=== PATIENT | female | born 1950 | race Caucasian/White ===

== ENCOUNTER → 2020-03-15 11:38 | Outpatient (CLI) | payer MEDICARE, OTHER, SELFPAY ==
[2020-03-15 13:26] LABS: BUN Creatinine Ratio 40.3 (6-22); Blood Urea Nitrogen 25 mg/dL (7-17); Calcium 9.3 mg/dL (8.4-10.2); Carbon Dioxide 28 mmol/L (22-32); Chloride 103 mmol/L (98-107); Estimated Glomerular Filt Rate > 60.0 mL/min (>60); Glucose 141 mg/dL (80-110); HEMOLYSIS < 15 (0-50); Sodium 139 mmol/L (137-145)
[2020-03-15 16:03] LABS: Thyroid Stimulating Hormone 0.12 uIU/mL (0.47-4.68)
== END ==
PROVIDERS: PCP Family Medicine; Referring Provider Family Medicine; Visit Provider Family Medicine
DX: Z79.899 Other long term (current) drug therapy (principal); E03.9 Hypothyroidism, unspecified
CPT/HCPCS: 36415; 80048; 84443

== ENCOUNTER → 2020-11-22 11:51 | Outpatient (CLI) | payer MEDICARE, OTHER, SELFPAY ==
[2020-11-22] MEDS: COVID-19 VACC #1, MRNA(MOD) 100 MCG/0.5 ML VIAL IM (12:09)
== END ==
PROVIDERS: PCP Family Medicine; Visit Provider Internal Medicine
DX: Z23 Encounter for immunization (principal)
CPT/HCPCS: 0011A; 91301

== ENCOUNTER → 2020-12-20 12:11 | Outpatient (CLI) | payer MEDICARE, OTHER, SELFPAY ==
[2020-12-20] MEDS: COVID-19 VACC #2, MRNA(MOD) 100 MCG/0.5 ML VIAL IM (12:17)
== END ==
PROVIDERS: PCP Family Medicine; Visit Provider Internal Medicine
DX: Z23 Encounter for immunization (principal)
CPT/HCPCS: 0012A; 91301

== ENCOUNTER → 2022-01-09 13:20 | Outpatient (CLI) | payer MEDICARE, OTHER, SELFPAY ==
[2022-01-09 17:19] LABS: COVID19 -Nasal RAPID Negative (Negative)
== END ==
PROVIDERS: PCP Family Medicine; Visit Provider Nurse Practitioner Family
DX: Z20.822 Contact with and (suspected) exposure to COVID-19 (principal)
CPT/HCPCS: 87635; C9803

== ENCOUNTER 2022-01-11 11:56 | Day surgery (SDC) | payer MEDICARE, OTHER, SELFPAY ==
--- NOTE | 2022-01-11 12:10 | PM.HP.1 ---
History of Present Illness History of Present Illness Date Patient Seen: 01/11/22 Chief complaint: SDC Narrative: 71 year old female comes in today for consideration of a screening colonoscopy. Last colonoscopy at [facility], unfortunately, records unavailable at time of dictation. Reports that she has had 2 lifetime colonoscopies with history of colon polyps, unsure of type. There have been no lower GI symptoms suggesting disease such as change in bowel habits, bleeding, abdominal pain or anemia. There's been no family history of colon cancer or colon polyps. Overall health issues have been stable, including no major cardiac events for at least 6 weeks. PCP: Dr. Chris Past Medical History: Hypothyroidism Osteoarthritis - bilateral knees Breast cancer - left DCIS (oncologist, Dr. Toshia Chavez, [facility]) Obesity Osteoporosis History of colon polyps Melanoma, right arm, 06/30/2018, no metastases. Past Surgical History: Right breast lumpectomy ( benign) 1989 Hernia repair 2005 1985 Bone spur Lumpectomy 2011 -left Multiple breast biopsies, left side Colonoscopy Family History: Father - age 96 ? 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 Alcohol drinks/day: 2/day >5/day in last 3 mos: no Caffeine use/day: 2 Type of Exercise: bike Exercise Times per Week: 6 Guns in home: no Dental Care w/in 6 mos.: yes Sun Exposure: occasionally Seat Belt Use: yes Smoking Status: former smoker Drug Use: never HIV High Risk Behavior: no Patient History Medical History (Updated 01/11/22 @ 12:21 by Laina Nazario RN) Breast cancer delivery affecting Colon polyps Hernia Hypothyroidism Obesity Osteoarthritis Osteoporosis Skin cancer Surgical History (Updated 01/10/22 @ 16:16 by Sharyn Goel RN) History of lumpectomy Meds Home Medications and Allergies Home Medications Medication Instructions Recorded Confirmed Type acetaminophen 500 mg PO Q6H PRN 01/11/22 01/11/22 History diphenhydramine HCl 25 mg capsule 25 mg PRN PRN 01/11/22 01/11/22 History (Allergy (diphenhydramine)) levothyroxine 112 mcg tablet 112 mcg DAILY 01/11/22 01/11/22 History meloxicam 7.5 mg tablet 7.5 mg DAILY 01/11/22 01/11/22 History raloxifene 60 mg tablet 60 mg DAILY 01/11/22 01/11/22 History Allergies Allergy/AdvReac Type Severity Reaction Status Date / Time cefuroxime Allergy Verified 01/11/22 12:13 Review of Systems Review of Systems Narrative: All remaining ROS were reviewed and negative except as addressed. Exam Narrative Exam Narrative: GENERAL: Alert and oriented, appearing stated age and in no acute distress. HEENT: Head normocephalic/atraumatic. Extraocular movements intact. LUNGS: Clear to ausculation bilaterally, no wheezes, rhonchi or rales. CV: Normal S1 and S2 with regular rate and rhythm, no audible murmurs, rubs or gallops. ABDOMEN: Soft, non-tender, non-distended, no organomegaly. Positive bowel sounds. EXTREMITIES: No clubbing, cyanosis, or edema. NEURO: Cranial nerves II through XII grossly intact, no focal deficits. PSYCH: Alert and oriented x 3. SKIN: No concerning lesions. Assessment & Plan Assessment & Plan narrative: 1. History of colon polyps 2. Screening for colon cancer Plan for colonoscopy. The nature and character of the procedure as well as anticipated results were discussed. The possibility of not completing the procedure was also discussed. Possible complications including aspiration pneumonia, bleeding, perforation and reaction to medications either for sedation or preparation and missed lesions were discussed. Questions were answered and proceeding to the colonoscopy was elected. Informed consent signed. I sincerely appreciate the referral allowing me to participate in this patient's care. Please contact me with any questions or concerns.
--- NOTE | 2022-01-11 12:15 | PM.OP.COLON ---
Operative Date/Time/Diagnoses Date of procedure: 01/11/22 Procedure Notes Procedure in detail: ENDOSCOPIST: Jasmin Chris MD Sedation RN: Cleopatra Luo RN Sedation start time: 1:12 p.m. Sedation end time: 1:32 p.m. PROCEDURE: Colonoscopy INDICATIONS: 1. History of colon polyps 2. Screening for colon cancer MEDICATION: Levsin 0.125 mg sublingual, incremental doses of Versed and fentanyl until appropriate level sedation achieved. ASA CLASS: 2 CECAL WITHDRAWAL TIME: 6 minutes COMPLICATIONS: None. EXTENT OF PROCEDURE: Cecum. QUALITY OF PREP: Good with portions of liquid stool. PROCEDURE: Prior to insertion of the colonoscope, a digital rectal examination was accomplished with circumferential palpation of the distal rectal mucosa without significant findings being noted. The high-definition colonoscope was passed into the rectum in the usual fashion and advanced over to the cecum without difficulty. The ileocecal valve, appendiceal stoma, and medial wall all could be inspected and no abnormalities were seen. ASCENDING COLON: As the colonoscope was withdrawn, care was taken to expose and inspect the haustral folds and no abnormalities were seen. HEPATIC FLEXURE: Normal, no polyps, diverticula or other abnormalities. TRANSVERSE COLON: Normal, no polyps, diverticula or other abnormalities. DESCENDING COLON: Normal, no polyps, diverticula or other abnormalities. SIGMOID COLON: Minor diverticulosis, otherwise, normal, no polyps or other abnormalities. RECTUM: Normal. J maneuver was produced. There was no significant perianal disease. The J maneuver was broken. The remainder of the rectum was inspected and there was no external hemorrhoid disease. The scope was withdrawn. IMPRESSION: 1. Normal colonoscopy 2. Sigmoid diverticulosis, mild PLAN: 1. Repeat colonoscopy in 5 years secondary to history of colon polyps. The possibility of a missed lesion including a malignancy has been discussed with the patient previously. Potential alarm symptoms have been discussed and should be reported immediately.
[2022-01-11 12:23] VITALS: BP 122/77; PULSE 73; RESP 18; TEMP 36.2; O2SAT 97; BMI 36.2
[2022-01-11] MEDS: LACTATED RINGERS 1,000 ML 42 ML IV (12:46)
[2022-01-11] MEDS: HYOSCYAMINE 0.125 MG TABLET PO (12:49)
[2022-01-11] MEDS: fentaNYL 250 MCG/5 ML INJ IV (13:22)
[2022-01-11] MEDS: MIDAZOLAM 5 MG/5 ML VIAL IV (13:22)
[2022-01-11 13:37] VITALS: BP 140/81; PULSE 73; RESP 16; TEMP 37.3; O2SAT 96
[2022-01-11 13:42] VITALS: BP 131/57; PULSE 75; RESP 15; O2SAT 93
[2022-01-11 13:50] VITALS: BP 133/82; PULSE 74; RESP 16; O2SAT 98
[2022-01-11 13:55] VITALS: BP 125/55; PULSE 68; RESP 12; O2SAT 96
--- NOTE | 2022-01-11 13:55 | SUR.PHASEI ---
Discharge instructions reviewed with pt and she verbalized understanding.
== END 2022-01-11 14:01 | disposition home or self-care (01) ==
PROVIDERS: PCP Student in an Organized Health Care Education/Training Program; Referring Provider Student in an Organized Health Care Education/Training Program; Visit Provider Student in an Organized Health Care Education/Training Program
PROC: 0DJD8ZZ Inspection of Lower Intestinal Tract, Via Natural or Artificial Opening Endoscopic (ICD-10-PCS; CPT 45378; principal; 2022-01-11 13:00)
DX: Z12.11 Encounter for screening for malignant neoplasm of colon (principal); Z86.010 Personal history of colon polyps; K57.30 Diverticulosis of large intestine without perforation or abscess without bleeding
CPT/HCPCS: G0105; J2250; J3010

== ENCOUNTER 2023-02-11 08:15 | Outpatient (RCR) | payer MEDICARE, OTHER, SELFPAY ==
--- NOTE | 2022-12-09 16:02 | PT.OIE ---
Current Diagnoses Intraductal carcinoma in situ of left breast (12/09/22) Soft tissue disorder, unspecified (12/09/22) Abnormal posture (12/09/22) Past Medical History (Last Updated 01/11/22 @ 12:21 by Laina Nazario, RN) Breast cancer delivery affecting Colon polyps Hernia Hypothyroidism Obesity Osteoarthritis Osteoporosis Skin cancer Past Surgical History (Last Updated 01/10/22 @ 16:16 by Sharyn Goel, TRACE) History of lumpectomy Visit Care Team Role Provider Type Jasmin Chris MD Family Provider Physician Primary Care Provider Specialty: Family Practice Address: [address] [place] [address] [place], [place], [facility] Email: [email or web address] Attending Provider Referring Provider Specialty: Address: Phone: Fax: Email: Physical Therapy Initial Evaluation PT-OP-A Visit Information Start: 12/09/22 14:31 Freq: Status: Active Protocol: Document 12/09/22 14:31 SAK (Rec: 12/09/22 15:59 SAK [id number]) Out-Patient Physical Therapy Visit Information Visit Information Visit Type Initial Evaluation Visit Start Time 14:32 Visit Stop Time 15:16 Total Visit Minutes 44 Visit Number 1 Evaluation Information Evaluation Date 12/09/22 PT-OP-B Current Condition Start: 12/09/22 14:31 Freq: Status: Active Protocol: Document 12/09/22 14:31 SAK (Rec: 12/09/22 15:59 SAK [id number]) Current Condition History of Current Condition Onset Date 3 weeks ago Current Complaints improve left shoulder ROM History of Current Condition 5 yrs ago 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 In rebuilding phase of surgeries, has had 2 saline injections, has 1-2 further injection saline left, then full reconstruction in March. Precautions for ROM limitations removed. Would like to regain full motion and use of her left UE. Prior Treatments and Tests mastectomy 3 wks ago Future Testing and Treatments Planned as above Treatment Goals Patient/Caregiver Goals Regain full active use left UE Prior Functional Status Baseline Function- ADL's Independent Baseline Function- Work/School retired Baseline Function- Recreation/Hobbies no limitations Current Functional Impairments (Reported) Functional Limitations- ADL's minimal use left UE, difficulty reaching overhead, out to side PT-OP-C Subjective Start: 12/09/22 14:31 Freq: Status: Active Protocol: Document 12/09/22 14:31 SAK (Rec: 12/09/22 15:59 [facility] [id number]) OP-PT Pain Assessment Pain Assessment Grid Paper Pain Assessment Grid Completed Yes Location left breast Intensity 1 Scale Used Numeric (0 - 10) Description Aching Pain Behaviors Pain Behaviors Guarding PT-OP-F Manual Assessment Start: 12/09/22 14:31 Freq: Status: Active Protocol: Document 12/09/22 14:31 SAK (Rec: 12/09/22 15:59 [facility] [id number]) Manual Assessments Soft Tissue Assessment Soft Tissue Mobility Assessment mastectomy scar left healing well with no signs or symptoms of infection. PT-OP-H Neuro Start: 12/09/22 14:31 Freq: Status: Active Protocol: Document 12/09/22 14:31 SAK (Rec: 12/09/22 15:59 [facility] [id number]) Sensation Evaluation Comments Summary Comments denied N/T PT-OP-J Posture/Palpation/Skin Start: 12/09/22 14:31 Freq: Status: Active Protocol: Document 12/09/22 14:31 SAK (Rec: 12/09/22 15:59 [facility] [id number]) Posture Evaluation Position Sitting Head/C-Spine Posture Forward Head T-Spine Posture Increased Kyphosis Shoulder Posture (L) Rounded,(R) Rounded Scapula Posture (L) Protracted,(R) Protracted Arm Posture (L) Internally Rotated,(R) Internally Rotated Palpation Assessment Location left UE Palpation Details no warmth or redness Skin Assessment Incisional Assessment Incision Appearance/Comments healing well, no signs or symptoms of infection PT-OP-K Range of Motion Start: 12/09/22 14:31 Freq: Status: Active Protocol: Document 12/09/22 14:31 SAK (Rec: 12/09/22 15:59 [facility] [id number]) Shoulder Goniometric Range of Motion Shoulder Left Shoulder ROM WFL No Flexion 145 Extension 15 Abduction 140 Horizontal Abduction 0 External Rotation at 45 degrees 75 Abduction Right Shoulder ROM WFL Yes Shoulder ROM Limitations Shoulder ROM Limitations Soft Tissue Tightness PT-OP-N Lymphedema Start: 12/09/22 14:31 Freq: Status: Active Protocol: Document 12/09/22 14:31 [facility] (Rec: 12/09/22 15:59 [facility] [id number]) Lymphedema Measurements Upper Extremity Circumference Measurements Left Affected MCP 19.6 cm Dorsum of Hand 20.7 cm Wrist 17.5 cm 5 cm From Wrist Crease 20.9 cm 10 cm From Wrist Crease 23.9 cm 15 cm From Wrist Crease 27.2 cm 20 cm From Wrist Crease 29.2 cm 25 cm From Wrist Crease 30.6 cm 30 cm From Wrist Crease 33.9 cm 35 cm From Wrist Crease 36.3 cm 40 cm From Wrist Crease 39.5 cm Elbow Joint 28.9 cm Right MCP 19.4 cm Dorsum of Hand 19.5 cm Wrist 17.5 cm 5 cm From Wrist Crease 21.1 cm 10 cm From Wrist Crease 24.4 cm 15 cm From Wrist Crease 28.4 cm 20 cm From Wrist Crease 29 cm 25 cm From Wrist Crease 30.2 cm 30 cm From Wrist Crease 33.6 cm 35 cm From Wrist Crease 37.8 cm 40 cm From Wrist Crease 38.3 cm Elbow Joint 28.6 cm Comments Lymphedema Comments left forearm appears slightly puffy, may be due to wearing watch on that wrist causing indentation. PT-OP-Q Treatments Start: 12/09/22 14:31 Freq: Status: Active Protocol: Document 12/09/22 14:31 [facility] (Rec: 12/09/22 15:59 [facility] [id number]) Self-Care/Home Management Treatment Education Patient Education Home Exercise Program,Posture Other Education monitor for heaviness, achiness in left UE. PT-OP-T Assessment and Plan Start: 12/09/22 14:31 Freq: Status: Active Protocol: Document 12/09/22 14:31 [facility] (Rec: 12/09/22 15:59 [facility] [id number]) Physical Therapy Assessment Rehab Potential Rehabilitation Potential Good Evaluation Complexity Number of Personal Factors/Comorbidities 1-2 Number of Body Systems Impaired 3 Clinical Presentation at Evaluation Evolving Impairments Impairments Posture,ROM,Soft Tissue Mobility Goals Four Impairment postural dysfunction Impairment forward head and rounded shoulders Prison Goal (LTG) Patient to demonstrate understanding of neutral postural alignment and be able to self-correct for improved shoulder function. 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 Reports no removal of lymph nodes. Good healing of scar with no signs or symptoms of infection. She has limitation in left shoulder ROM, and postural dysfunction of forward head and rounded shoulders. Circumferential measurements not indicative of lymphedema, puffiness left UE proximal to wrist likely due to patient wearing watch too tightly but she is at risk of lymphedema development and will be monitored. Patient education started today regarding lymphedema precautions and prevention. She was instructed in shoulder ROM exercises and issued a written handout with caution to start slowly,discontinue if any pain. We discussed POC and she was in agreement. Physical Therapy Plan Frequency and Duration Frequency of Treatment 24 visits Duration of treatment (weeks) 12 Plan of Care Start Date 12/09/22 Plan of Care End Date 03/08/23 Therapeutic Interventions Therapeutic Interventions Home Exercise Program, Lymphedema Management,Manual Therapy,Patient/Caregiver Education,Self-Care/Home Management,Soft Tissue Mobilization,Taping, Therapeutic Activities, Therapeutic Exercises Next Visit Focus/Plan Next Note Type Treatment Note Next Visit Plan Review HEP, gentle progression with postural correction, deep breathing, ROM exercises. Consider starting gentle scar massage if fully healed. Continue to monitor for signs and symptoms of lymphedema
--- NOTE | 2022-12-09 16:02 | PT.OPPOC ---
Physical, Occupational & Speech Therapy At 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 Attending Provider Referring Provider Specialty: Address: Phone: Fax: Email: Plan Of Care PT-OP-T Assessment and Plan Start: 12/09/22 14:31 Freq: Status: Active Protocol: Document 12/09/22 14:31 SAK (Rec: 12/09/22 15:59 SAK [id number]) Physical Therapy Assessment Rehab Potential Rehabilitation Potential Good Evaluation Complexity Number of Personal Factors/Comorbidities 1-2 Number of Body Systems Impaired 3 Clinical Presentation at Evaluation Evolving Impairments Impairments Posture,ROM,Soft Tissue Mobility Goals Four Impairment postural dysfunction Impairment forward head and rounded shoulders Care Home Goal (LTG) Patient to demonstrate understanding of neutral postural alignment and be able to self-correct for improved shoulder function. LTG Duration 03/08/23 Three Impairment at risk for lymphedema Short Term Goal (STG) instruct in precautions and signs and symptoms of lymphedema and take circumferential measurements to monitor for development Care Home Goal (LTG) Patient to demonstrate good understanding of precautions, signs and symptoms for lymphedema. 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 Reports no removal of lymph nodes. Good healing of scar with no signs or symptoms of infection. She has limitation in left shoulder ROM, and postural dysfunction of forward head and rounded shoulders. Circumferential measurements not indicative of lymphedema, puffiness left UE proximal to wrist likely due to patient wearing watch too tightly but she is at risk of lymphedema development and will be monitored. Patient education started today regarding lymphedema precautions and prevention. She was instructed in shoulder ROM exercises and issued a written handout with caution to start slowly,discontinue if any pain. We discussed POC and she was in agreement. Physical Therapy Plan Frequency and Duration Frequency of Treatment 24 visits Duration of treatment (weeks) 12 Plan of Care Start Date 12/09/22 Plan of Care End Date 03/08/23 Therapeutic Interventions Therapeutic Interventions Home Exercise Program, Lymphedema Management,Manual Therapy,Patient/Caregiver Education,Self-Care/Home Management,Soft Tissue Mobilization,Taping, Therapeutic Activities, Therapeutic Exercises Next Visit Focus/Plan Next Note Type Treatment Note Next Visit Plan Review HEP, gentle progression with postural correction, deep breathing, ROM exercises. Consider starting gentle scar massage if fully healed. Continue to monitor for signs and symptoms of lymphedema Plan of Care Dates Plan of Care Start Date 12/09/22 Plan of Care End Date 03/08/23 Electronically Signed by: Socorro Franco, PT 12/09/22 8621 If you are in agreement with this Plan of Care, please return a signed and dated copy. I have reviewed this Plan of Care and certify that the skilled therapy services above are required to meet the patient?s needs. Physician Signature Date Printed Name and Credentials Clinical Instructor Signature Printed Name and Credentials
--- NOTE | 2022-12-16 15:18 | PT.OTN ---
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 Compliant to HEP. 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 In rebuilding phase of surgeries, has had 2 saline injections, has 1-2 further injection saline left, then full reconstruction in March. Precautions for ROM limitations removed. Would like to regain full motion and use of her left UE. Prior Treatments and Tests mastectomy 3 wks ago Future Testing and Treatments Planned as above Treatment Goals Patient/Caregiver Goals Regain full active use left UE PT-OP-C Subjective Start: 12/09/22 14:31 Freq: Status: Active Protocol: Document 12/09/22 14:31 SAK (Rec: 12/09/22 15:59 [facility] [id number]) OP-PT Pain Assessment Pain Assessment Grid Paper Pain Assessment Grid Completed Yes Location left breast Intensity 1 Scale Used Numeric (0 - 10) Description Aching Pain Behaviors Pain Behaviors Guarding PT-OP-F Manual Assessment Start: 12/09/22 14:31 Freq: Status: Active Protocol: Document 12/09/22 14:31 SAK (Rec: 12/09/22 15:59 [facility] [id number]) Manual Assessments Soft Tissue Assessment Soft Tissue Mobility Assessment mastectomy scar left healing well with no signs or symptoms of infection. PT-OP-H Neuro Start: 12/09/22 14:31 Freq: Status: Active Protocol: Document 12/09/22 14:31 SAK (Rec: 12/09/22 15:59 [facility] [id number]) Sensation Evaluation Comments Summary Comments denied N/T PT-OP-J Posture/Palpation/Skin Start: 12/09/22 14:31 Freq: Status: Active Protocol: Document 12/09/22 14:31 SAK (Rec: 12/09/22 15:59 SAK [id number]) Posture Evaluation Position Sitting Head/C-Spine Posture Forward Head T-Spine Posture Increased Kyphosis Shoulder Posture (L) Rounded,(R) Rounded Scapula Posture (L) Protracted,(R) Protracted Arm Posture (L) Internally Rotated,(R) Internally Rotated Palpation Assessment Location left UE Palpation Details no warmth or redness Skin Assessment Incisional Assessment Incision Appearance/Comments healing well, no signs or symptoms of infection PT-OP-K Range of Motion Start: 12/09/22 14:31 Freq: Status: Active Protocol: Document 12/09/22 14:31 SAK (Rec: 12/09/22 15:59 [facility] [id number]) Shoulder Goniometric Range of Motion Shoulder Left Shoulder ROM WFL No Flexion 145 Extension 15 Abduction 140 Horizontal Abduction 0 External Rotation at 45 degrees 75 Abduction Right Shoulder ROM WFL Yes Shoulder ROM Limitations Shoulder ROM Limitations Soft Tissue Tightness PT-OP-N Lymphedema Start: 12/09/22 14:31 Freq: Status: Active Protocol: Document 12/09/22 14:31 SAK (Rec: 12/09/22 15:59 SAK [id number]) Lymphedema Measurements Upper Extremity Circumference Measurements Left Affected MCP 19.6 cm Dorsum of Hand 20.7 cm Wrist 17.5 cm 5 cm From Wrist Crease 20.9 cm 10 cm From Wrist Crease 23.9 cm 15 cm From Wrist Crease 27.2 cm 20 cm From Wrist Crease 29.2 cm 25 cm From Wrist Crease 30.6 cm 30 cm From Wrist Crease 33.9 cm 35 cm From Wrist Crease 36.3 cm 40 cm From Wrist Crease 39.5 cm Elbow Joint 28.9 cm Right MCP 19.4 cm Dorsum of Hand 19.5 cm Wrist 17.5 cm 5 cm From Wrist Crease 21.1 cm 10 cm From Wrist Crease 24.4 cm 15 cm From Wrist Crease 28.4 cm 20 cm From Wrist Crease 29 cm 25 cm From Wrist Crease 30.2 cm 30 cm From Wrist Crease 33.6 cm 35 cm From Wrist Crease 37.8 cm 40 cm From Wrist Crease 38.3 cm Elbow Joint 28.6 cm Comments Lymphedema Comments left forearm appears slightly puffy, may be due to wearing watch on that wrist causing indentation. PT-OP-Q Treatments Start: 12/09/22 14:31 Freq: Status: Active Protocol: Document 12/16/22 14:30 [facility] (Rec: 12/16/22 15:18 [facility] [id number]) Gym Equipment Therapeutic Ball sitting Exercise Details forward roll out, ball on table Ball Size/Color red 55 cm Body Position Sitting Comments for shoulder ROM Therapeutic Exercises Supine Exercises shoulder flexion Supine Exercise Name wand Equipment Used wand Reps/Minutes 10 Sidelying Exercises open book Reps/Minutes 5x Comments cues for segmental, deep breathing at end range shoulder abduction Comments not tolerated Sitting Exercises prayer stretch with ball Sitting Exercise Name ball roll out Side bilateral Equipment Used 55 cm ball Reps/Minutes 5x pulleys Sitting Exercise Name flexion, scaption Reps/Minutes 10x ea Self-Care/Home Management Treatment Education Patient Education Home Exercise Program,Posture Other Education precautions and risk reduction practices for lymphedema; issued written handouts PT-OP-T Assessment and Plan Start: 12/09/22 14:31 Freq: Status: Active Protocol: Document 12/16/22 14:30 [facility] (Rec: 12/16/22 15:18 [facility] [id number]) Physical Therapy Assessment Impairments Impairments Posture,ROM,Soft Tissue Mobility Goals Four Impairment postural dysfunction Impairment forward head and rounded shoulders Obiee [employer] Solution Architect Goal (LTG) Patient to demonstrate understanding of neutral postural alignment and be able to self-correct for improved shoulder function. LTG Duration 03/08/23 Three Impairment at risk for lymphedema Short Term Goal (STG) instruct in precautions and signs and symptoms of lymphedema and take circumferential measurements to monitor for development Intermediate Goal (LTG) Patient to demonstrate good understanding of precautions, signs and symptoms for lymphedema. If lymphedema develops PT to initiate treatment for lymphedema management LTG Duration 03/08/23 Two Impairment decreased scar mobility Impairment decreased mastectomy scar mobility Intermediate Goal (LTG) Scar mobility left mastectomy scar WNL LTG Duration 03/08/23 One Impairment decreased shoulder ROM Impairment difficulty reaching overhead and out to side Short Term Goal (STG) Instruct in HEP to support therapy activities for purposes of left shoulder ROM STG Duration 01/06/23 Intermediate Goal (LTG) Patient to demonstrate full active ROM left UE and be independent in HEP for purposes of ROM and gentle strengthening to help pt return to full function LTG Duration 03/08/23 Progress Towards Goals Progress Towards Goals Progressing Toward Goals Assessment Summary Assessment Improved shoulder ROM, added open book and prayer stretch with 55 cm ball (patient has at home). Trial sidelying shoulder abduction but not tolerated. Patient educated on precautions and risk reduction practices for lymphedema; issued written handouts. Physical Therapy Plan Frequency and Duration Frequency of Treatment 24 visits Duration of treatment (weeks) 12 Plan of Care Start Date 12/09/22 Plan of Care End Date 03/08/23 Therapeutic Interventions Therapeutic Interventions Home Exercise Program, Lymphedema Management,Manual Therapy,Patient/Caregiver Education,Self-Care/Home Management,Soft Tissue Mobilization,Taping, Therapeutic Activities, Therapeutic Exercises Next Visit Focus/Plan Next Note Type Treatment Note Next Visit Plan circumferential measurements. Progress ther ex as tolerated for postural correction, ROM. Evaluate readiness for scar massage.
--- NOTE | 2022-12-18 16:55 | PT-OP ANOTE ---
cancelled PT appointment, requests PT 1x/wk
--- NOTE | 2022-12-23 16:29 | PT.OTN ---
Current Diagnoses Intraductal carcinoma in situ of left breast (12/23/22) Soft tissue disorder, unspecified (12/23/22) Abnormal posture (12/23/22) Physical Therapy Treatment Note PT-OP-A Visit Information Start: 12/09/22 14:31 Freq: Status: Active Protocol: Document 12/23/22 14:34 SAK (Rec: 12/23/22 15:17 SAK [id number]) Out-Patient Physical Therapy Visit Information Visit Information Visit Type Treatment Note Visit Start Time 14:34 Visit Stop Time 15:16 Total Visit Minutes 42 Visit Number 3 PT-OP-B Current Condition Start: 12/09/22 14:31 Freq: Status: Active Protocol: Document 12/16/22 14:30 SAK (Rec: 12/16/22 15:18 SAK [id number]) Current Condition History of Current Condition Onset Date 3 weeks ago Current Complaints improve left shoulder ROM History of Current Condition 5 yrs ago 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 In rebuilding phase of surgeries, has had 2 saline injections, has 1-2 further injection saline left, then full reconstruction in March. Precautions for ROM limitations removed. Would like to regain full motion and use of her left UE. Prior Treatments and Tests mastectomy 3 wks ago Future Testing and Treatments Planned as above Treatment Goals Patient/Caregiver Goals Regain full active use left UE PT-OP-C Subjective Start: 12/09/22 14:31 Freq: Status: Active Protocol: Document 12/23/22 14:34 SAK (Rec: 12/23/22 15:17 [facility] [id number]) OP-PT Subjective Patient Comments Patient Comments Got last fill in left breast, goes back for final implant in 2-3 months. PT-OP-F Manual Assessment Start: 12/09/22 14:31 Freq: Status: Active Protocol: Document 12/09/22 14:31 SAK (Rec: 12/09/22 15:59 SAK [id number]) Manual Assessments Soft Tissue Assessment Soft Tissue Mobility Assessment mastectomy scar left healing well with no signs or symptoms of infection. PT-OP-H Neuro Start: 12/09/22 14:31 Freq: Status: Active Protocol: Document 12/09/22 14:31 SAK (Rec: 12/09/22 15:59 [facility] [id number]) Sensation Evaluation Comments Summary Comments denied N/T PT-OP-J Posture/Palpation/Skin Start: 12/09/22 14:31 Freq: Status: Active Protocol: Document 12/09/22 14:31 SAK (Rec: 12/09/22 15:59 [facility] [id number]) Posture Evaluation Position Sitting Head/C-Spine Posture Forward Head T-Spine Posture Increased Kyphosis Shoulder Posture (L) Rounded,(R) Rounded Scapula Posture (L) Protracted,(R) Protracted Arm Posture (L) Internally Rotated,(R) Internally Rotated Palpation Assessment Location left UE Palpation Details no warmth or redness Skin Assessment Incisional Assessment Incision Appearance/Comments healing well, no signs or symptoms of infection PT-OP-K Range of Motion Start: 12/09/22 14:31 Freq: Status: Active Protocol: Document 12/09/22 14:31 [facility] (Rec: 12/09/22 15:59 [facility] [id number]) Shoulder Goniometric Range of Motion Shoulder Left Shoulder ROM WFL No Flexion 145 Extension 15 Abduction 140 Horizontal Abduction 0 External Rotation at 45 degrees 75 Abduction Right Shoulder ROM WFL Yes Shoulder ROM Limitations Shoulder ROM Limitations Soft Tissue Tightness PT-OP-N Lymphedema Start: 12/09/22 14:31 Freq: Status: Active Protocol: Document 12/09/22 14:31 [facility] (Rec: 12/09/22 15:59 [facility] [id number]) Lymphedema Measurements Upper Extremity Circumference Measurements Left Affected MCP 19.6 cm Dorsum of Hand 20.7 cm Wrist 17.5 cm 5 cm From Wrist Crease 20.9 cm 10 cm From Wrist Crease 23.9 cm 15 cm From Wrist Crease 27.2 cm 20 cm From Wrist Crease 29.2 cm 25 cm From Wrist Crease 30.6 cm 30 cm From Wrist Crease 33.9 cm 35 cm From Wrist Crease 36.3 cm 40 cm From Wrist Crease 39.5 cm Elbow Joint 28.9 cm Right MCP 19.4 cm Dorsum of Hand 19.5 cm Wrist 17.5 cm 5 cm From Wrist Crease 21.1 cm 10 cm From Wrist Crease 24.4 cm 15 cm From Wrist Crease 28.4 cm 20 cm From Wrist Crease 29 cm 25 cm From Wrist Crease 30.2 cm 30 cm From Wrist Crease 33.6 cm 35 cm From Wrist Crease 37.8 cm 40 cm From Wrist Crease 38.3 cm Elbow Joint 28.6 cm Comments Lymphedema Comments left forearm appears slightly puffy, may be due to wearing watch on that wrist causing indentation. PT-OP-Q Treatments Start: 12/09/22 14:31 Freq: Status: Active Protocol: Document 12/23/22 14:34 [facility] (Rec: 12/23/22 15:17 [facility] [id number]) Gym Equipment Therapeutic Ball sitting Exercise Details kneeling to roll out Ball Size/Color red 55 cm Body Position kneeling Reps/Duration 10x Comments shoulder ROM Therapeutic Exercises Supine Exercises shoulder flexion Supine Exercise Name wand Equipment Used wand Reps/Minutes 10 Sidelying Exercises open book Reps/Minutes 5x Comments cues for segmental, deep breathing at end range shoulder abduction Reps/Minutes 5x Comments padmini to 100 Sitting Exercises pulleys Sitting Exercise Name flexion, scaption Reps/Minutes 10x ea Standing Exercises shoulder isometrics Reps/Minutes 10x5 Comments all motions, issued handout doorway stretch Reps/Minutes 2x30 shoulder ER Resistance L1 TB Reps/Minutes 10x row Resistance L1 TB Reps/Minutes 10x Self-Care/Home Management Treatment Education Patient Education Home Exercise Program,Posture Other Education issued updated written handout PT-OP-T Assessment and Plan Start: 12/09/22 14:31 Freq: Status: Active Protocol: Document 12/23/22 14:34 [facility] (Rec: 12/23/22 15:17 [facility] [id number]) Physical Therapy Assessment Goals Four Impairment postural dysfunction Impairment forward head and rounded shoulders Newborn Hearing Screener Goal (LTG) Patient to demonstrate understanding of neutral postural alignment and be able to self-correct for improved shoulder function. LTG Duration 03/08/23 Three Impairment at risk for lymphedema Short Term Goal (STG) instruct in precautions and signs and symptoms of lymphedema and take circumferential measurements to monitor for development Newborn Hearing Screener Goal (LTG) Patient to demonstrate good understanding of precautions, signs and symptoms for lymphedema. If lymphedema develops PT to initiate treatment for lymphedema management LTG Duration 03/08/23 Two Impairment decreased scar mobility Impairment decreased mastectomy scar mobility Newborn Hearing Screener Goal (LTG) Scar mobility left mastectomy scar WNL LTG Duration 03/08/23 One Impairment decreased shoulder ROM Impairment difficulty reaching overhead and out to side Short Term Goal (STG) Instruct in HEP to support therapy activities for purposes of left shoulder ROM STG Duration 01/06/23 Fdc Goal (LTG) Patient to demonstrate full active ROM left UE and be independent in HEP for purposes of ROM and gentle strengthening to help pt return to full function LTG Duration 03/08/23 Assessment Summary Assessment Patient shoulder ROM continues to improve, most difficulty with shoulder abduction. Added shoulder isometrics, row and ER with TB with patient demonstrating good understanding. Physical Therapy Plan Frequency and Duration Frequency of Treatment 24 visits Duration of treatment (weeks) 12 Plan of Care Start Date 12/09/22 Plan of Care End Date 03/08/23 Therapeutic Interventions Therapeutic Interventions Home Exercise Program, Lymphedema Management,Manual Therapy,Patient/Caregiver Education,Self-Care/Home Management,Soft Tissue Mobilization,Taping, Therapeutic Activities, Therapeutic Exercises Next Visit Focus/Plan Next Note Type Treatment Note Next Visit Plan circumferential measurements. Progress ther ex as tolerated for postural correction, ROM. Evaluate readiness for scar massage.
--- NOTE | 2022-12-30 18:07 | PT.OTN ---
Current Diagnoses Intraductal carcinoma in situ of left breast (12/30/22) Soft tissue disorder, unspecified (12/30/22) Abnormal posture (12/30/22) Physical Therapy Treatment Note PT-OP-A Visit Information Start: 12/09/22 14:31 Freq: Status: Active Protocol: Document 12/30/22 14:28 SAK (Rec: 12/30/22 15:10 [facility] [id number]) Out-Patient Physical Therapy Visit Information Visit Information Visit Type Treatment Note Visit Start Time 14:29 Visit Stop Time 15:14 Total Visit Minutes 45 Visit Number 4 PT-OP-B Current Condition Start: 12/09/22 14:31 Freq: Status: Active Protocol: Document 12/16/22 14:30 SAK (Rec: 12/16/22 15:18 SAK [id number]) Current Condition History of Current Condition Onset Date 3 weeks ago Current Complaints improve left shoulder ROM History of Current Condition 5 yrs ago 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 In rebuilding phase of surgeries, has had 2 saline injections, has 1-2 further injection saline left, then full reconstruction in March. Precautions for ROM limitations removed. Would like to regain full motion and use of her left UE. Prior Treatments and Tests mastectomy 3 wks ago Future Testing and Treatments Planned as above Treatment Goals Patient/Caregiver Goals Regain full active use left UE PT-OP-C Subjective Start: 12/09/22 14:31 Freq: Status: Active Protocol: Document 12/30/22 14:28 SAK (Rec: 12/30/22 15:10 [facility] [id number]) OP-PT Subjective Patient Comments Patient Comments Had some soreness left axilla; maybe I popped a stitch, woke up and it was that way, but seems to be getting better . Shoulder tight when reaching overhead, especially doing her hair. IMproving ability to reach up into cupboards PT-OP-F Manual Assessment Start: 12/09/22 14:31 Freq: Status: Active Protocol: Document 12/09/22 14:31 SAK (Rec: 12/09/22 15:59 [facility] [id number]) Manual Assessments Soft Tissue Assessment Soft Tissue Mobility Assessment mastectomy scar left healing well with no signs or symptoms of infection. PT-OP-H Neuro Start: 12/09/22 14:31 Freq: Status: Active Protocol: Document 12/09/22 14:31 SAK (Rec: 12/09/22 15:59 [facility] [id number]) Sensation Evaluation Comments Summary Comments denied N/T PT-OP-J Posture/Palpation/Skin Start: 12/09/22 14:31 Freq: Status: Active Protocol: Document 12/09/22 14:31 SAK (Rec: 12/09/22 15:59 [facility]AK [id number]) Posture Evaluation Position Sitting Head/C-Spine Posture Forward Head T-Spine Posture Increased Kyphosis Shoulder Posture (L) Rounded,(R) Rounded Scapula Posture (L) Protracted,(R) Protracted Arm Posture (L) Internally Rotated,(R) Internally Rotated Palpation Assessment Location left UE Palpation Details no warmth or redness Skin Assessment Incisional Assessment Incision Appearance/Comments healing well, no signs or symptoms of infection PT-OP-K Range of Motion Start: 12/09/22 14:31 Freq: Status: Active Protocol: Document 12/09/22 14:31 SAK (Rec: 12/09/22 15:59 [facility] [id number]) Shoulder Goniometric Range of Motion Shoulder Left Shoulder ROM WFL No Flexion 145 Extension 15 Abduction 140 Horizontal Abduction 0 External Rotation at 45 degrees 75 Abduction Right Shoulder ROM WFL Yes Shoulder ROM Limitations Shoulder ROM Limitations Soft Tissue Tightness PT-OP-N Lymphedema Start: 12/09/22 14:31 Freq: Status: Active Protocol: Document 12/30/22 14:28 SAK (Rec: 12/30/22 15:10 [facility] [id number]) Lymphedema Measurements Upper Extremity Circumference Measurements Left Affected MCP 19.6 cm Dorsum of Hand 20 cm Wrist 17.9 cm 5 cm From Wrist Crease 21.5 cm 10 cm From Wrist Crease 24.2 cm 15 cm From Wrist Crease 27.2 cm 20 cm From Wrist Crease 28.6 cm 25 cm From Wrist Crease 28.8 cm 30 cm From Wrist Crease 31.8 cm 35 cm From Wrist Crease 34.9 cm 40 cm From Wrist Crease 37 cm 45 cm From Wrist Crease 40.2 cm Elbow Joint 29 cm PT-OP-Q Treatments Start: 12/09/22 14:31 Freq: Status: Active Protocol: Document 12/30/22 14:28 SAK (Rec: 12/30/22 18:06 [facility] [id number]) Therapeutic Exercises Supine Exercises PROM shoulder Supine Exercise Name all planes Reps/Minutes 5 min girl on the beach Reps/Minutes 5x10 Sidelying Exercises open book Reps/Minutes 5x Comments cues for segmental, deep breathing at end range Sitting Exercises prayer stretch with ball Sitting Exercise Name HEP pulleys Sitting Exercise Name flexion, scaption Reps/Minutes 10x ea Standing Exercises doorway stretch Standing Exercise Name HEP shoulder ER Standing Exercise Name HEP row Standing Exercise Name HEP Self-Care/Home Management Treatment Education Patient Education Home Exercise Program,Posture Other Education issued updated written handout , information regarding compressio sleeves Lymphedema Treatment Compression Garment Assessment Compression Garment Assessment Details Educated in benefits for use for prevention of lymphedema on airplanes; explored options with patient and determined best option is Jobst 20-30 mmHg sizes medium. PT-OP-T Assessment and Plan Start: 12/09/22 14:31 Freq: Status: Active Protocol: Document 12/30/22 14:28 [facility] (Rec: 12/30/22 15:10 [facility] [id number]) Physical Therapy Assessment Goals Four Impairment postural dysfunction Impairment forward head and rounded shoulders Steeping Press Operator Goal (LTG) Patient to demonstrate understanding of neutral postural alignment and be able to self-correct for improved shoulder function. LTG Duration 03/08/23 Three Impairment at risk for lymphedema Short Term Goal (STG) instruct in precautions and signs and symptoms of lymphedema and take circumferential measurements to monitor for development Shelter Goal (LTG) Patient to demonstrate good understanding of precautions, signs and symptoms for lymphedema. If lymphedema develops PT to initiate treatment for lymphedema management LTG Duration 03/08/23 Two Impairment decreased scar mobility Impairment decreased mastectomy scar mobility Steeping Press Operator Goal (LTG) Scar mobility left mastectomy scar WNL LTG Duration 03/08/23 One Impairment decreased shoulder ROM Impairment difficulty reaching overhead and out to side Short Term Goal (STG) Instruct in HEP to support therapy activities for purposes of left shoulder ROM STG Duration 01/06/23 Shelter Goal (LTG) Patient to demonstrate full active ROM left UE and be independent in HEP for purposes of ROM and gentle strengthening to help pt return to full function LTG Duration 03/08/23 Assessment Summary Assessment Improving left shoulder ROM and functional use. Added supine shoulder flex/ER (girl on the beach stretch). Left UE circumferential measurements stable. Looked at compression sleeves with patient, identified size M Jobst as best off the shelf option with recommendation for use on plane for prevention of lymphedema Gentle STM to mstectomy scar; patient has started using vitamin E oil on scar per PT recommendation. She will be gone for 10 days. Will do follow-up when she returns. Physical Therapy Plan Frequency and Duration Frequency of Treatment 24 visits Duration of treatment (weeks) 12 Plan of Care Start Date 12/09/22 Plan of Care End Date 03/08/23 Therapeutic Interventions Therapeutic Interventions Home Exercise Program, Lymphedema Management,Manual Therapy,Patient/Caregiver Education,Self-Care/Home Management,Soft Tissue Mobilization,Taping, Therapeutic Activities, Therapeutic Exercises Next Visit Focus/Plan Next Note Type Treatment Note Next Visit Plan circumferential measurements. Progress ther ex as tolerated for postural correction, ROM. Evaluate readiness for scar massage.
--- NOTE | 2023-01-28 16:36 | PT.OTN ---
Current Diagnoses Intraductal carcinoma in situ of left breast (01/28/23) Soft tissue disorder, unspecified (01/28/23) Abnormal posture (01/28/23) Physical Therapy Treatment Note PT-OP-A Visit Information Start: 12/09/22 14:31 Freq: Status: Active Protocol: Document 01/28/23 14:32 SAK (Rec: 01/28/23 15:18 SAK [id number]) Out-Patient Physical Therapy Visit Information Visit Information Visit Type Treatment Note Visit Start Time 14:32 Visit Stop Time 15:14 Total Visit Minutes 42 Visit Number 5 PT-OP-B Current Condition Start: 12/09/22 14:31 Freq: Status: Active Protocol: Document 12/16/22 14:30 SAK (Rec: 12/16/22 15:18 SAK [id number]) Current Condition History of Current Condition Onset Date 3 weeks ago Current Complaints improve left shoulder ROM History of Current Condition 5 yrs ago 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 In rebuilding phase of surgeries, has had 2 saline injections, has 1-2 further injection saline left, then full reconstruction in March. Precautions for ROM limitations removed. Would like to regain full motion and use of her left UE. Prior Treatments and Tests mastectomy 3 wks ago Future Testing and Treatments Planned as above Treatment Goals Patient/Caregiver Goals Regain full active use left UE PT-OP-C Subjective Start: 12/09/22 14:31 Freq: Status: Active Protocol: Document 01/28/23 14:32 SAK (Rec: 01/28/23 15:18 SAK [id number]) OP-PT Subjective Patient Comments Patient Comments Scheduled for final surgery end of month for implant. PT-OP-F Manual Assessment Start: 12/09/22 14:31 Freq: Status: Active Protocol: Document 12/09/22 14:31 SAK (Rec: 12/09/22 15:59 SAK [id number]) Manual Assessments Soft Tissue Assessment Soft Tissue Mobility Assessment mastectomy scar left healing well with no signs or symptoms of infection. PT-OP-H Neuro Start: 12/09/22 14:31 Freq: Status: Active Protocol: Document 12/09/22 14:31 SAK (Rec: 12/09/22 15:59 SAK [id number]) Sensation Evaluation Comments Summary Comments denied N/T PT-OP-J Posture/Palpation/Skin Start: 12/09/22 14:31 Freq: Status: Active Protocol: Document 12/09/22 14:31 SAK (Rec: 12/09/22 15:59 [facility] [id number]) Posture Evaluation Position Sitting Head/C-Spine Posture Forward Head T-Spine Posture Increased Kyphosis Shoulder Posture (L) Rounded,(R) Rounded Scapula Posture (L) Protracted,(R) Protracted Arm Posture (L) Internally Rotated,(R) Internally Rotated Palpation Assessment Location left UE Palpation Details no warmth or redness Skin Assessment Incisional Assessment Incision Appearance/Comments healing well, no signs or symptoms of infection PT-OP-K Range of Motion Start: 12/09/22 14:31 Freq: Status: Active Protocol: Document 12/09/22 14:31 [facility] (Rec: 12/09/22 15:59 [facility] [id number]) Shoulder Goniometric Range of Motion Shoulder Left Shoulder ROM WFL No Flexion 145 Extension 15 Abduction 140 Horizontal Abduction 0 External Rotation at 45 degrees 75 Abduction Right Shoulder ROM WFL Yes Shoulder ROM Limitations Shoulder ROM Limitations Soft Tissue Tightness PT-OP-N Lymphedema Start: 12/09/22 14:31 Freq: Status: Active Protocol: Document 01/28/23 14:32 [facility] (Rec: 01/28/23 15:18 [facility] [id number]) Lymphedema Measurements Upper Extremity Circumference Measurements Left Affected MCP 19.7 cm Dorsum of Hand 20.6 cm Wrist 17.5 cm 5 cm From Wrist Crease 21.5 cm 10 cm From Wrist Crease 24.3 cm 15 cm From Wrist Crease 27.2 cm 20 cm From Wrist Crease 28.4 cm 25 cm From Wrist Crease 29.4 cm 30 cm From Wrist Crease 32.6 cm 35 cm From Wrist Crease 35.4 cm 40 cm From Wrist Crease 38.7 cm 45 cm From Wrist Crease 41.3 cm Elbow Joint 28.3 cm Right MCP 19.8 cm Dorsum of Hand 19.8 cm Wrist 17.2 cm 5 cm From Wrist Crease 21.4 cm 10 cm From Wrist Crease 24.8 cm 15 cm From Wrist Crease 27.7 cm 20 cm From Wrist Crease 28.7 cm 25 cm From Wrist Crease 30.5 cm 30 cm From Wrist Crease 33.8 cm 35 cm From Wrist Crease 36.6 cm 40 cm From Wrist Crease 38.8 cm 45 cm From Wrist Crease 40 cm Elbow Joint 27.6 cm PT-OP-Q Treatments Start: 12/09/22 14:31 Freq: Status: Active Protocol: Document 01/28/23 14:32 SAK (Rec: 01/28/23 15:18 SAK [id number]) Therapeutic Exercises Supine Exercises T,Y, I stretch Equipment Used foam roller Reps/Minutes 2x30 ea girl on the beach Reps/Minutes 5x10 Sitting Exercises pec stretch Reps/Minutes 2X30 scapular squeeze/row Reps/Minutes 10X pulleys Sitting Exercise Name flexion, scaption Reps/Minutes 10x ea Lymphedema Treatment Compression Garment Assessment Compression Garment Assessment Details Patient did not obtain compression sleeve as recommended. PT-OP-T Assessment and Plan Start: 12/09/22 14:31 Freq: Status: Active Protocol: Document 01/28/23 14:32 [facility] (Rec: 01/28/23 15:18 [facility] [id number]) Physical Therapy Assessment Goals Four Impairment postural dysfunction Impairment forward head and rounded shoulders Ductfixing Plumber Goal (LTG) Patient to demonstrate understanding of neutral postural alignment and be able to self-correct for improved shoulder function. LTG Duration 03/08/23 Three Impairment at risk for lymphedema Short Term Goal (STG) instruct in precautions and signs and symptoms of lymphedema and take circumferential measurements to monitor for development '01/28/23: goal met, ongoing Ductfix[employer] Plumber Goal (LTG) Patient to demonstrate good understanding of precautions, signs and symptoms for lymphedema. If lymphedema develops PT to initiate treatment for lymphedema management LTG Duration 03/08/23 Two Impairment decreased scar mobility Impairment decreased mastectomy scar mobility [facility] Goal (LTG) Scar mobility left mastectomy scar WNL 01/28/23: has initiated gentle self massage LTG Duration 03/08/23 One Impairment decreased shoulder ROM Impairment difficulty reaching overhead and out to side Short Term Goal (STG) Instruct in HEP to support therapy activities for purposes of left shoulder ROM 01/28/23: goal met STG Duration goal met, progressing Ductfixing Plumber Goal (LTG) Patient to demonstrate full active ROM left UE and be independent in HEP for purposes of ROM and gentle strengthening to help pt return to full function LTG Duration 03/08/23 Assessment Summary Assessment Some increase circumferential measurements left upper arm, lower arm stable, denies aching or heaviness. Right arm stable or dec. Concern over lymphedema, again encouraged patient to obtain compression sleeve, started MLD today with pt instructions , given information regarding video for self massage on [facility] on YouTube. REcommended follow-up appointment prior to surgery to continue to monitor and treat as indicated and recommend PT after surgery. Physical Therapy Plan Frequency and Duration Frequency of Treatment 24 visits Duration of treatment (weeks) 12 Plan of Care Start Date 12/09/22 Plan of Care End Date 03/08/23 Therapeutic Interventions Therapeutic Interventions Home Exercise Program, Lymphedema Management,Manual Therapy,Patient/Caregiver Education,Self-Care/Home Management,Soft Tissue Mobilization,Taping, Therapeutic Activities, Therapeutic Exercises Next Visit Focus/Plan Next Note Type Treatment Note Next Visit Plan Circumferential measurements. Progress ther ex as indicated . Review MLD. Assure patient obtains compression sleeve.
--- NOTE | 2023-02-11 08:50 | PT.OTN ---
Current Diagnoses Intraductal carcinoma in situ of left breast (02/11/23) Soft tissue disorder, unspecified (02/11/23) Abnormal posture (02/11/23) Physical Therapy Treatment Note PT-OP-A Visit Information Start: 12/09/22 14:31 Freq: Status: Active Protocol: Document 02/11/23 08:09 SAK (Rec: 02/11/23 08:49 [facility] [id number]) Out-Patient Physical Therapy Visit Information Visit Information Visit Type Treatment Note Visit Start Time 08:15 Visit Stop Time 08:47 Total Visit Minutes 32 Visit Number 6 PT-OP-B Current Condition Start: 12/09/22 14:31 Freq: Status: Active Protocol: Document 12/16/22 14:30 SAK (Rec: 12/16/22 15:18 SAK [id number]) Current Condition History of Current Condition Onset Date 3 weeks ago Current Complaints improve left shoulder ROM History of Current Condition 5 yrs ago 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 In rebuilding phase of surgeries, has had 2 saline injections, has 1-2 further injection saline left, then full reconstruction in March. Precautions for ROM limitations removed. Would like to regain full motion and use of her left UE. Prior Treatments and Tests mastectomy 3 wks ago Future Testing and Treatments Planned as above Treatment Goals Patient/Caregiver Goals Regain full active use left UE PT-OP-C Subjective Start: 12/09/22 14:31 Freq: Status: Active Protocol: Document 02/11/23 08:09 SAK (Rec: 02/11/23 08:49 [facility] [id number]) OP-PT Subjective Patient Comments Patient Comments No new c/o, obtained compression sleeve, uncomfortable, causes swelling in hand PT-OP-F Manual Assessment Start: 12/09/22 14:31 Freq: Status: Active Protocol: Document 12/09/22 14:31 SAK (Rec: 12/09/22 15:59 SAK [id number]) Manual Assessments Soft Tissue Assessment Soft Tissue Mobility Assessment mastectomy scar left healing well with no signs or symptoms of infection. PT-OP-H Neuro Start: 12/09/22 14:31 Freq: Status: Active Protocol: Document 12/09/22 14:31 SAK (Rec: 12/09/22 15:59 [facility] [id number]) Sensation Evaluation Comments Summary Comments denied N/T PT-OP-J Posture/Palpation/Skin Start: 12/09/22 14:31 Freq: Status: Active Protocol: Document 12/09/22 14:31 SAK (Rec: 12/09/22 15:59 SAK [id number]) Posture Evaluation Position Sitting Head/C-Spine Posture Forward Head T-Spine Posture Increased Kyphosis Shoulder Posture (L) Rounded,(R) Rounded Scapula Posture (L) Protracted,(R) Protracted Arm Posture (L) Internally Rotated,(R) Internally Rotated Palpation Assessment Location left UE Palpation Details no warmth or redness Skin Assessment Incisional Assessment Incision Appearance/Comments healing well, no signs or symptoms of infection PT-OP-K Range of Motion Start: 12/09/22 14:31 Freq: Status: Active Protocol: Document 12/09/22 14:31 [facility] (Rec: 12/09/22 15:59 [facility] [id number]) Shoulder Goniometric Range of Motion Shoulder Left Shoulder ROM WFL No Flexion 145 Extension 15 Abduction 140 Horizontal Abduction 0 External Rotation at 45 degrees 75 Abduction Right Shoulder ROM WFL Yes Shoulder ROM Limitations Shoulder ROM Limitations Soft Tissue Tightness PT-OP-N Lymphedema Start: 12/09/22 14:31 Freq: Status: Active Protocol: Document 02/11/23 08:09 [facility] (Rec: 02/11/23 08:49 [facility] [id number]) Lymphedema Measurements Upper Extremity Circumference Measurements Left Affected MCP 19.2 cm Dorsum of Hand 20.5 cm Wrist 17.7 cm 5 cm From Wrist Crease 21.8 cm 10 cm From Wrist Crease 24.2 cm 15 cm From Wrist Crease 27.2 cm 20 cm From Wrist Crease 28.8 cm 25 cm From Wrist Crease 29.5 cm 30 cm From Wrist Crease 32.2 cm 35 cm From Wrist Crease 35.2 cm 40 cm From Wrist Crease 38.9 cm 45 cm From Wrist Crease 41.8 cm Elbow Joint 28.4 cm PT-OP-Q Treatments Start: 12/09/22 14:31 Freq: Status: Active Protocol: Document 02/11/23 08:09 DANIEL (Rec: 02/11/23 08:49 [facility] [id number]) Therapeutic Exercises Supine Exercises T,Y, I stretch Supine Exercise Name HEP review girl on the beach Supine Exercise Name HEP review Sidelying Exercises open book Sidelying Exercise Name HEP review shoulder abduction Sidelying Exercise Name HEP review Sitting Exercises pec stretch Reps/Minutes 2X30 Self-Care/Home Management Treatment Education Patient Education Home Exercise Program,Posture Other Education compression sleeve options for better fit: stretch wrist of current sleeve, obtain new, larger size, consider Juzo soft, lower compression level, gradually increase wear time, wear with activity and exercise. Lymphedema Treatment Compression Garment Assessment Compression Garment Assessment Details Patient reports too tight at wrist; see above for PT recommendations. She did not bring to PT today. Only able to wear 3 hrs at a time and pushes fluid into hand PT-OP-T Assessment and Plan Start: 12/09/22 14:31 Freq: Status: Active Protocol: Document 02/11/23 08:09 [facility] (Rec: 02/11/23 08:49 [facility] [id number]) Physical Therapy Assessment Goals Four Impairment postural dysfunction Impairment forward head and rounded shoulders [facility] Goal (LTG) Patient to demonstrate understanding of neutral postural alignment and be able to self-correct for improved shoulder function. LTG Duration goal met 02/11/23 Three Impairment at risk for lymphedema Short Term Goal (STG) instruct in precautions and signs and symptoms of lymphedema and take circumferential measurements to monitor for development '01/28/23: goal met, ongoing [facility] Goal (LTG) Patient to demonstrate good understanding of precautions, signs and symptoms for lymphedema. If lymphedema develops PT to initiate treatment for lymphedema management LTG Duration 02/11/23 goal met Two Impairment decreased scar mobility Impairment decreased mastectomy scar mobility [facility] Goal (LTG) Scar mobility left mastectomy scar WNL 01/28/23: has initiated gentle self massage LTG Duration 02/11/23 goal met One Impairment decreased shoulder ROM Impairment difficulty reaching overhead and out to side Short Term Goal (STG) Instruct in HEP to support therapy activities for purposes of left shoulder ROM 01/28/23: goal met STG Duration goal met, progressing [facility] Goal (LTG) Patient to demonstrate full active ROM left UE and be independent in HEP for purposes of ROM and gentle strengthening to help pt return to full function LTG Duration 02/11/23 goal met Assessment Summary Assessment Goals met, patient demonstrated good understanding of management of lymphedema. To continue with lymphatic massage, options for improved fit and tolerance for compression sleeve Physical Therapy Plan Discharge Physical Therapy Discharge Reasons Goals Met
== END 2023-02-13 11:55 | disposition home or self-care (01) ==
LOC: PHYS 08:15
PROVIDERS: Family Provider Student in an Organized Health Care Education/Training Program; PCP Student in an Organized Health Care Education/Training Program
DX: D05.12 Intraductal carcinoma in situ of left breast (principal); M79.9 Soft tissue disorder, unspecified; R29.3 Abnormal posture
CPT/HCPCS: 97110; 97140; 97162; 97535

== ENCOUNTER → 2023-02-19 12:40 | Outpatient (CLI) | payer MEDICARE, OTHER, SELFPAY | PROVIDERS: Family Provider Student in an Organized Health Care Education/Training Program; PCP Family Medicine; Referring Provider Family Medicine; Visit Provider Family Medicine | DX: Z01.818 Encounter for other preprocedural examination (principal); C50.919 Malignant neoplasm of unspecified site of unspecified female breast; R03.0 Elevated blood-pressure reading, without diagnosis of hypertension | CPT/HCPCS: 93005; 93010 ==

== ENCOUNTER → 2023-07-04 10:42 | Outpatient (CLI) | payer MEDICARE, OTHER, SELFPAY ==
--- NOTE | 2023-07-04 | DI.RAD.S_ITS ---
Bone Density Report Name: Renetta Dyer Age: 73 Sex: Female Ethnicity: White Date of : 1950 Indication: postmenopausal; screening for osteoporosis; Referring Provider: RICKY WOLFE Study: Bone densitometry was performed. Exam Date: July 04, 2023 Accession number: [id number] Bone Density: Region BMD T-score Z-score Classification AP Spine(L1-L4) 0.780 -2.4 -0.3 Osteopenia Femoral Neck (Left) 0.590 -2.3 -0.5 Osteopenia Total Hip (Left) 0.752 -1.6 0.0 Osteopenia Femoral Neck (Right) 0.584 -2.4 -0.5 Osteopenia Total Hip (Right) 0.756 -1.5 0.0 Osteopenia Total Hip Mean 0.754 -1.6 0.0 Osteopenia World Health Organization criteria for BMD impression classify patients as: Normal (T-score at or above -1.0), Osteopenia (T-score between -1.0 and -2.5), or Osteoporosis (T-score at or below -2.5). 10-year Fracture Risk(1): Major Osteoporotic Fracture 13% Hip Fracture 2.9% Reported Risk Factors: [place] (), Neck BMD=0.584, BMI=36.6 (1) FRAX(R) Version 3.08. Fracture probability calculated for an untreated patient. Fracture probability may be lower if the patient has received treatment. Impression: The patient has low bone mass, based on the Total Spine T-score. The patient has an estimated ten-year risk of hip fracture of 2.9% and an estimated ten-year risk of major fracture of 13%, based on the WHO FRAX algorithm. Discussion: BONE DENSITY IS LOW AT ONE OR MORE SKELETAL SITES. This patient's lowest T-score is low at one or more skeletal sites. It meets the World Health Organization's (WHO) criteria for low bone mass (T-score between -1.0 and -2.5). The patient's 10-year risk of fracture as calculated by FRAX is less than the threshold where pharmacological therapy is recommended by the National Osteoporosis Foundation (NOF). However, all treatment decisions require clinical judgment and consideration of individual patient factors, including patient preferences, comorbidities, previous drug use, risk factors not captured in the FRAX model (e.g., frailty, falls, vitamin D deficiency, increased bone turnover, interval significant decline in bone density) and possible under or overestimation of fracture risk by FRAX. The patient should follow a healthful lifestyle (good nutrition with adequate calcium and vitamin D, and appropriate weight-bearing exercise). Follow-Up: Consider repeating this study in 2 to 3 years to reassess this patient's status, or sooner if there is some new clinical indication. Reported by: ELIZABETH WATSON M.D. on 07/04/2023 11:24:00 AM.
== END ==
PROVIDERS: Family Provider Student in an Organized Health Care Education/Training Program; PCP Family Medicine; Referring Provider Family Medicine; Visit Provider Family Medicine
DX: Z13.820 Encounter for screening for osteoporosis; Z78.0 Asymptomatic menopausal state; M85.88 Other specified disorders of bone density and structure, other site; Z92.23 Personal history of estrogen therapy
CPT/HCPCS: 77080

== ENCOUNTER 2024-04-05 11:15 | Outpatient (RCR) | payer MEDICARE, OTHER, SELFPAY ==
--- NOTE | 2024-01-12 15:00 | PT.OIE ---
Current Diagnoses Unilateral primary osteoarthritis, right knee (01/12/24) Difficulty in walking, not elsewhere classified (01/12/24) Weakness (01/12/24) Past Medical History (Last Updated 01/11/22 @ 12:21 by Laina Nazario, RN) Breast cancer delivery affecting Colon polyps Hernia Hypothyroidism Obesity Osteoarthritis Osteoporosis Skin cancer Past Surgical History (Last Updated 01/10/22 @ 16:16 by Karen Goel, TRACE) History of lumpectomy Visit Care Team Role Provider Type Mimi Dawson MD Primary Care Provider Physician Specialty: Family Practice Address: [address] [place] [address], [place], [address] Email: [email or web address] Jasmin Chris MD Family Provider Physician Specialty: Family Practice Address: [address] [place] [address], [place], [address] Email: [email or web address] Lilia Coyle PA-C Attending Provider Non-Staff Referring Provider Specialty: General Surgery Address: [address] [place] [address], [id number] Email: Physical Therapy Initial Evaluation PT-OP-A Visit Information Start: 01/01/24 18:29 Freq: Status: Active Protocol: Document 01/12/24 12:59 [facility] (Rec: 01/12/24 14:59 [facility] [id number]) Out-Patient Physical Therapy Visit Information Visit Information Visit Type Initial Evaluation Visit Start Time 13:51 Visit Stop Time 14:34 Visit Number 1 Number of LIAISON PLANNER Visits 0 PT-OP-B Current Condition Start: 01/01/24 18:29 Freq: Status: Active Protocol: Document 01/12/24 12:59 [facility] (Rec: 01/12/24 14:59 [facility] [id number]) Current Condition History of Current Condition Onset Date 01/04 Current Complaints R TKA History of Current Condition Pt reports she had a bad knee for 15 years and it got to a point where about Nov, she knew it was time. She couldn't even make it around the grocery store at that time. SHe wants to cont to walk aroudn and travel and do stuff . She lives with her who has been a good helper. Pt has a SLH but has 18 stairs w /rail to get in and knows step to pattern. has a walk in shower and is using a BSC and a raised toilet seat. She has a FWW and cane. Has been indep w/dressing and bathing except helps with socks. DOes have osteoporosis and has started infusion treatments for that. Does also have L knee pain and Treatment Goals Patient/Caregiver Goals be able to travel, at 6 months wants to go to [place], be able to go for walks, be able to walk faster PT-OP-C Subjective Start: 01/01/24 18:29 Freq: Status: Active Protocol: Document 01/12/24 12:59 [facility] (Rec: 01/12/24 14:59 [facility] [id number]) Patient Questionnaires Lower Extremity Functional Scale LEFS Score 13/80 PT-OP-F Manual Assessment Start: 01/01/24 18:29 Freq: Status: Active Protocol: Document 01/12/24 12:59 [facility] (Rec: 01/12/24 14:59 [facility] [id number]) Manual Assessments Other Manual Assessments Other Manual Assessments signficiant bruising throughout lower leg and thigh w/intact dressing w/o excessive drainage PT-OP-G Mobility & Gait Start: 01/01/24 18:29 Freq: Status: Active Protocol: Document 01/12/24 12:59 [facility] (Rec: 01/12/24 14:59 [facility] [id number]) OP Gait Assessment Comments Gait Comments dec RLE stance time, wt shifted towards left; amb wFWW w/smaller strides PT-OP-K Range of Motion Start: 01/01/24 18:29 Freq: Status: Active Protocol: Document 01/12/24 12:59 [facility] (Rec: 01/12/24 14:59 [facility] [id number]) Knee Goniometric Range of Motion Knee Right Flexion Active (degrees) 45 Extension Active (degrees) 16 Left Flexion Active (degrees) 131 Extension Active (degrees) 6 PT-OP-M Strength Start: 01/01/24 18:29 Freq: Status: Active Protocol: Document 01/12/24 12:59 [facility] (Rec: 01/12/24 14:59 [facility] [id number]) Hip Strength Hip Manual Muscle Testing Right Flexion (L2) 3 Fair Abduction 4- Good- External Rotation 3 Fair Internal Rotation 3 Fair Left Flexion (L2) 4- Good- Abduction 4 Good External Rotation 3+ Fair+ Internal Rotation 3+ Fair+ Comments clunking in knee Knee Strength Knee Manual Muscle Testing Right Flexion (S2) 3+ Fair+ Extension (L3) 3+ Fair+ Left Flexion (S2) 4+ Good+ Extension (L3) 4+ Good+ Ankle/Foot Strength Ankle and Foot Manual Muscle Testing Right Dorsiflexion (L4) 4 Good Plantarflexion (S1) 3+ Fair+ Left Dorsiflexion (L4) 5 Normal Plantarflexion (S1) 4+ Good+ Comments PF tested seated B PT-OP-Q Treatments Start: 01/01/24 18:29 Freq: Status: Active Protocol: Document 01/12/24 12:59 [facility] (Rec: 01/12/24 14:59 [facility] [id number]) Therapeutic Exercises Supine Exercises SLR Side right Reps/Minutes 5 HS sets Side right Reps/Minutes 5 sec x10 SAQ Side right Reps/Minutes 10 heel slides Side right Reps/Minutes 5 sec x10 quad sets Side right Equipment Used pillow behind Reps/Minutes 5 sec x10 Gait Training Gait Activity stairs Comments step to up/down 6 in training stairs w/rail and SPC Self-Care/Home Management Treatment Education Other Education 8 min: edu on icing for 10-15 min mult times a day. Discussed use of cane w/stairs to help improve balance on stairs. Edu on frequent bouts of activity w/walking every hour for small distances along w/APs and importance of doing exercises 2-3x/day; assist pt to put on stocking and edu on turning inside out. PT-OP-T Assessment and Plan Start: 01/01/24 18:29 Freq: Status: Active Protocol: Document 01/12/24 12:59 [facility] (Rec: 01/12/24 14:59 [facility] [id number]) Physical Therapy Assessment Goals Four Impairment walking w/FWW Short Term Goal (STG) Pt will be able to walk w/o AD around the house and start short walks of 5 min STG Duration 02/25/24 Follow Up Specialist Goal (LTG) Pt will be able to return to walking at least 1 mile on small hills w/o inc pain greater than /10 LTG Duration 04/05 Two Impairment ROM Short Term Goal (STG) Pt will improve R knee AROM to at least 5-95 deg STG Duration 02/25/24 Shelter Goal (LTG) Pt will improve R knee AROM to at least 0-120 deg to allow for greater ease w/activities like stairs LTG Duration 04/05/24 One Impairment LEFS 13/80 Short Term Goal (STG) Pt will improve LEFS score to at least 38/80 to show improved functional ability. STG Duration 02/25/24 Shelter Goal (LTG) Pt will improve LEFS score to at least 60/80 to show improved functional ability. LTG Duration 04/05/24 Assessment Summary Assessment Pt presents 1 week s/p R TKA with good pain control the last few days w/use of tylenol . She does have significantly limited ROM and is lacking ROM into ext and flex. She has dec RLE strength and impaired gait patterns d/t pain and lack of strength and ROM and wants to return to traveling w /walking and has a trip to [facility] planned in 6 months. She has signficiant swelling and bruising in RLE which is likely cotnributing to lack of ROm at this time and would benefit from skilled PT to return to full activity. Physical Therapy Plan Frequency and Duration Frequency of Treatment 2x/Week Duration of treatment (weeks) 12 Plan of Care Start Date 01/12/24 Plan of Care End Date 04/05/24 Therapeutic Interventions Therapeutic Interventions Balance Training,Gait Training ,Home Exercise Program,Joint Mobilizations,Manual Therapy, Neuromuscular Re-education, Orthotic/Prosthetic Management ,Patient/Caregiver Education, Self-Care/Home Management,Soft Tissue Mobilization,Taping, Therapeutic Activities, Therapeutic Exercises Modalities Cold Pack/Ice Massage,Electric Stimulation,Hot Packs Next Visit Focus/Plan Next Note Type Treatment Note Next Visit Plan review exercises; progress to #2 exercises in book, try stepper and light weight leg press; AAROM w/ball and use of belt manual to improve ROM
--- NOTE | 2024-01-12 15:00 | PT.OPPOC ---
Physical, Occupational & Speech Therapy At [facility] Current Diagnoses Unilateral primary osteoarthritis, right knee (01/12/24) Difficulty in walking, not elsewhere classified (01/12/24) Weakness (01/12/24) Visit Care Team Role Provider Type Mimi Dawson MD Primary Care Provider Physician Specialty: Family Practice Address: [address] [place] [address], [facility] [place], [address] Email: [email or web address] Jasmin Chris MD Family Provider Physician Specialty: Family Practice Address: [address] [place] [address], [place], [address] Email: [email or web address] Lilia Coyle PA-C Attending Provider Non-Staff Referring Provider Specialty: General Surgery Address: [address] [place] [address], [id number] Email: Plan Of Care PT-OP-T Assessment and Plan Start: 01/01/24 18:29 Freq: Status: Active Protocol: Document 01/12/24 12:59 [facility] (Rec: 01/12/24 14:59 [facility] [id number]) Physical Therapy Assessment Goals Four Impairment walking w/FWW Short Term Goal (STG) Pt will be able to walk w/o AD around the house and start short walks of 5 min STG Duration 02/25/24 Residential Goal (LTG) Pt will be able to return to walking at least 1 mile on small hills w/o inc pain greater than 1/10 LTG Duration 04/05 Two Impairment ROM Short Term Goal (STG) Pt will improve R knee AROM to at least 5-95 deg STG Duration 02/25/24 Residential Goal (LTG) Pt will improve R knee AROM to at least 0-120 deg to allow for greater ease w/activities like stairs LTG Duration 04/05/24 One Impairment LEFS 13/80 Short Term Goal (STG) Pt will improve LEFS score to at least 38/80 to show improved functional ability. STG Duration 02/25/24 Long Term Care Pharmacist Goal (LTG) Pt will improve LEFS score to at least 60/80 to show improved functional ability. LTG Duration 04/05/24 Assessment Summary Assessment Pt presents 1 week s/p R TKA with good pain control the last few days w/use of tylenol . She does have significantly limited ROM and is lacking ROM into ext and flex. She has dec RLE strength and impaired gait patterns d/t pain and lack of strength and ROM and wants to return to traveling w /walking and has a trip to [facility] planned in 6 months. She has signficiant swelling and bruising in RLE which is likely cotnributing to lack of ROm at this time and would benefit from skilled PT to return to full activity. Physical Therapy Plan Frequency and Duration Frequency of Treatment 2x/Week Duration of treatment (weeks) 12 Plan of Care Start Date 01/12/24 Plan of Care End Date 04/05/24 Therapeutic Interventions Therapeutic Interventions Balance Training,Gait Training ,Home Exercise Program,Joint Mobilizations,Manual Therapy, Neuromuscular Re-education, Orthotic/Prosthetic Management ,Patient/Caregiver Education, Self-Care/Home Management,Soft Tissue Mobilization,Taping, Therapeutic Activities, Therapeutic Exercises Modalities Cold Pack/Ice Massage,Electric Stimulation,Hot Packs Next Visit Focus/Plan Next Note Type Treatment Note Next Visit Plan review exercises; progress to #2 exercises in book, try stepper and light weight leg press; AAROM w/ball and use of belt manual to improve ROM Plan of Care Dates Plan of Care Start Date 01/12/24 Plan of Care End Date 04/05/24 Electronically Signed by: Liset Patel, PT 01/12/24 1500 If you are in agreement with this Plan of Care, please return a signed and dated copy. I have reviewed this Plan of Care and certify that the skilled therapy services above are required to meet the patient?s needs. Physician Signature Date Printed Name and Credentials Clinical Instructor Signature Printed Name and Credentials
--- NOTE | 2024-01-15 09:38 | PT.OTN ---
Current Diagnoses Unilateral primary osteoarthritis, right knee (01/15/24) Difficulty in walking, not elsewhere classified (01/15/24) Weakness (01/15/24) Physical Therapy Treatment Note PT-OP-A Visit Information Start: 01/01/24 18:29 Freq: Status: Active Protocol: Document 01/15/24 08:22 [facility] (Rec: 01/15/24 09:38 [facility] [id number]) Out-Patient Physical Therapy Visit Information Visit Information Visit Type Treatment Note Visit Start Time 08:22 Visit Stop Time 09:02 Visit Number 2 Number of RESISTANCE WELDER Visits 0 PT-OP-B Current Condition Start: 01/01/24 18:29 Freq: Status: Active Protocol: Document 01/12/24 12:59 [facility] (Rec: 01/12/24 14:59 [facility] [id number]) Current Condition History of Current Condition Onset Date 01/04 Current Complaints R TKA History of Current Condition Pt reports she had a bad knee for 15 years and it got to a point where about Nov, she knew it was time. She couldn't even make it around the grocery store at that time. SHe wants to cont to walk aron and travel and do stuff . She lives with her who has been a good helper. Pt has a SLH but has 18 stairs w /rail to get in and knows step to pattern. has a walk in shower and is using a BSC and a raised toilet seat. She has a FWW and cane. Has been indep w/dressing and bathing except helps with socks. DOes have osteoporosis and has started infusion treatments for that. Does also have L knee pain and Treatment Goals Patient/Caregiver Goals be able to travel, at 6 months wants to go to [place], be able to go for walks, be able to walk faster PT-OP-C Subjective Start: 01/01/24 18:29 Freq: Status: Active Protocol: Document 01/15/24 08:22 [facility] (Rec: 01/15/24 09:38 [facility] [id number]) OP-PT Subjective Patient Comments Patient Comments Pt reports she has been compliant w/exercises 2x/day. Still icing. Took off compression sock the next day and has been unable to get it back on. PT-OP-F Manual Assessment Start: 03/07/24 18:29 Freq: Status: Active Protocol: Document 01/12/24 12:59 [facility] (Rec: 01/12/24 14:59 [facility] [id number]) Manual Assessments Other Manual Assessments Other Manual Assessments signficiant bruising throughout lower leg and thigh w/intact dressing w/o excessive drainage PT-OP-G Mobility & Gait Start: 01/01/24 18:29 Freq: Status: Active Protocol: Document 01/12/24 12:59 [facility] (Rec: 01/12/24 14:59 [facility] [id number]) OP Gait Assessment Comments Gait Comments dec RLE stance time, wt shifted towards left; amb wFWW w/smaller strides PT-OP-K Range of Motion Start: 01/01/24 18:29 Freq: Status: Active Protocol: Document 01/12/24 12:59 [facility] (Rec: 01/12/24 14:59 [facility] [id number]) Knee Goniometric Range of Motion Knee Right Flexion Active (degrees) 45 Extension Active (degrees) 16 Left Flexion Active (degrees) 131 Extension Active (degrees) 6 PT-OP-M Strength Start: 01/01/24 18:29 Freq: Status: Active Protocol: Document 01/12/24 12:59 [facility] (Rec: 01/12/24 14:59 [facility] [id number]) Hip Strength Hip Manual Muscle Testing Right Flexion (L2) 3 Fair Abduction 4- Good- External Rotation 3 Fair Internal Rotation 3 Fair Left Flexion (L2) 4- Good- Abduction 4 Good External Rotation 3+ Fair+ Internal Rotation 3+ Fair+ Comments clunking in knee Knee Strength Knee Manual Muscle Testing Right Flexion (S2) 3+ Fair+ Extension (L3) 3+ Fair+ Left Flexion (S2) 4+ Good+ Extension (L3) 4+ Good+ Ankle/Foot Strength Ankle and Foot Manual Muscle Testing Right Dorsiflexion (L4) 4 Good Plantarflexion (S1) 3+ Fair+ Left Dorsiflexion (L4) 5 Normal Plantarflexion (S1) 4+ Good+ Comments PF tested seated B PT-OP-Q Treatments Start: 01/01/24 18:29 Freq: Status: Active Protocol: Document 01/15/24 08:22 [facility] (Rec: 01/15/24 09:38 [facility] [id number]) Cardio Equipment Recumbent Elliptical (Biodex) Duration (Minutes) 6 Resistance 0 Seat Position 10 Gym Equipment Shuttle Recovery Bilateral Squats Details for ROM & quad activation Resistance 37# Reps/Time 15 Therapeutic Ball supine Exercise Details 1.DL flex 2. SL flex Ball Size/Color 65 CM Body Position Supine Reps/Duration 10 ea (5 sec hold w/DL) Therapeutic Exercises Supine Exercises ext Supine Exercise Name passive ext Side right Reps/Minutes 2 min PROM Supine Exercise Name PT assisted ROM Side right Reps/Minutes 3 min SLR Side right Reps/Minutes 10 HS sets Supine Exercise Name w/strap Side right Reps/Minutes 5 sec x10 SAQ Side right Reps/Minutes 10x5 sec heel slides Side right Reps/Minutes 5 sec x10 quad sets Side right Equipment Used pillow behind Reps/Minutes 5 sec x10 Sitting Exercises flex Side right Reps/Minutes 10 sec x8 LAQ Side right Reps/Minutes 3 sec x10 PT-OP-T Assessment and Plan Start: 01/01/24 18:29 Freq: Status: Active Protocol: Document 01/15/24 08:22 [facility] (Rec: 01/15/24 09:38 [facility] [id number]) Physical Therapy Assessment Goals Four Impairment walking w/FWW Short Term Goal (STG) Pt will be able to walk w/o AD around the house and start short walks of 5 min STG Duration 02/25/24 Care Home Goal (LTG) Pt will be able to return to walking at least 1 mile on small hills w/o inc pain greater than 1/10 LTG Duration 04/05 Two Impairment ROM Short Term Goal (STG) Pt will improve R knee AROM to at least 5-95 deg STG Duration 02/25/24 Wastewater Treatment Engineer Goal (LTG) Pt will improve R knee AROM to at least 0-120 deg to allow for greater ease w/activities like stairs LTG Duration 04/05/24 One Impairment LEFS 13/80 Short Term Goal (STG) Pt will improve LEFS score to at least 38/80 to show improved functional ability. STG Duration 02/25/24 Care Home Goal (LTG) Pt will improve LEFS score to at least 60/80 to show improved functional ability. LTG Duration 04/05/24 Assessment Summary Assessment Pt instructed to call MD office re: calf tightness and discomfort to inform them. Pt has no redness, inc heat on that side and has standard swelling. She idd well with exercises w/min cueing and reminders to hold exercises occasionally. Tolerated stepper well. 5 deg-76 deg after exercsies today Physical Therapy Plan Next Visit Focus/Plan Next Note Type Treatment Note Next Visit Plan review exercises; stepper and light weight leg press; AAROM w/ball and use of belt manual to improve ROM as able
--- NOTE | 2024-01-21 16:23 | PT.OTN ---
Current Diagnoses Unilateral primary osteoarthritis, right knee (01/21/24) Difficulty in walking, not elsewhere classified (01/21/24) Weakness (01/21/24) Physical Therapy Treatment Note PT-OP-A Visit Information Start: 01/01/24 18:29 Freq: Status: Active Protocol: Document 01/21/24 12:51 AB (Rec: 01/21/24 16:23 AB [id number]) Out-Patient Physical Therapy Visit Information Visit Information Visit Type Treatment Note Visit Note Visit [email or web address] [facility] Access Code: [email or web address] Visit Start Time 14:34 Visit Stop Time 15:17 Visit Number 3 Number of PURSE [employer] Visits 1 PT-OP-B Current Condition Start: 01/01/24 18:29 Freq: Status: Active Protocol: Document 01/12/24 12:59 [facility] (Rec: 01/12/24 14:59 [facility] [id number]) Current Condition History of Current Condition Onset Date 01/04 Current Complaints R TKA History of Current Condition Pt reports she had a bad knee for 15 years and it got to a point where about Aug, she knew it was time. She couldn't even make it around the grocery store at that time. SHe wants to cont to walk aron and travel and do stuff . She lives with her who has been a good helper. Pt has a SLH but has 18 stairs w /rail to get in and knows step to pattern. has a walk in shower and is using a BSC and a raised toilet seat. She has a FWW and cane. Has been indep w/dressing and bathing except helps with socks. DOes have osteoporosis and has started infusion treatments for that. Does also have L knee pain and Treatment Goals Patient/Caregiver Goals be able to travel, at 6 months wants to go to [place], be able to go for walks, be able to walk faster PT-OP-C Subjective Start: 01/01/24 18:29 Freq: Status: Active Protocol: Document 01/21/24 12:51 AB (Rec: 01/21/24 16:23 AB [id number]) OP-PT Subjective Patient Comments Patient Comments ok to stop wearing the compression socks, the pain in calf was not a blood clot. lacking 16 deg extension to 85 deg flexion AROM right knee. PT-OP-F Manual Assessment Start: 01/01/24 18:29 Freq: Status: Active Protocol: Document 01/12/24 12:59 [facility] (Rec: 01/12/24 14:59 [facility] [id number]) Manual Assessments Other Manual Assessments Other Manual Assessments signficiant bruising throughout lower leg and thigh w/intact dressing w/o excessive drainage PT-OP-G Mobility & Gait Start: 01/01/24 18:29 Freq: Status: Active Protocol: Document 01/12/24 12:59 [facility] (Rec: 01/12/24 14:59 [facility] [id number]) OP Gait Assessment Comments Gait Comments dec RLE stance time, wt shifted towards left; amb wFWW w/smaller strides PT-OP-K Range of Motion Start: 01/01/24 18:29 Freq: Status: Active Protocol: Document 01/12/24 12:59 [facility] (Rec: 01/12/24 14:59 [facility] [id number]) Knee Goniometric Range of Motion Knee Right Flexion Active (degrees) 45 Extension Active (degrees) 16 Left Flexion Active (degrees) 131 Extension Active (degrees) 6 PT-OP-M Strength Start: 01/01/24 18:29 Freq: Status: Active Protocol: Document 01/12/24 12:59 [facility] (Rec: 01/12/24 14:59 [facility] [id number]) Hip Strength Hip Manual Muscle Testing Right Flexion (L2) 3 Fair Abduction 4- Good- External Rotation 3 Fair Internal Rotation 3 Fair Left Flexion (L2) 4- Good- Abduction 4 Good External Rotation 3+ Fair+ Internal Rotation 3+ Fair+ Comments clunking in knee Knee Strength Knee Manual Muscle Testing Right Flexion (S2) 3+ Fair+ Extension (L3) 3+ Fair+ Left Flexion (S2) 4+ Good+ Extension (L3) 4+ Good+ Ankle/Foot Strength Ankle and Foot Manual Muscle Testing Right Dorsiflexion (L4) 4 Good Plantarflexion (S1) 3+ Fair+ Left Dorsiflexion (L4) 5 Normal Plantarflexion (S1) 4+ Good+ Comments PF tested seated B PT-OP-Q Treatments Start: 01/01/24 18:29 Freq: Status: Active Protocol: Document 01/21/24 12:51 AB (Rec: 01/21/24 16:23 AB [id number]) Therapeutic Exercises Supine Exercises knee flexion with feet on ball Side bilateral Reps/Minutes 2 minutes hamstring stretch Supine Exercise Name from hooklying Side right Reps/Minutes 60 seconds X 2 SLR Side right Reps/Minutes 10X2 SAQ Side right Reps/Minutes 15 heel slides Side right Reps/Minutes x10 quad sets Side right Reps/Minutes 2X10 Therapeutic Activity Therapeutic Activity sit to stand from varying seat heights Name from varying seat heights Reps/Minutes X6 Comments Pt ed mechanics of sit to stand and self tactile cues for hip hinge. Manual Therapy Treatment Soft Tissue Mobilization right knee Body Location quad, hamstring, for swelling Mobilization Type Cross-Friction,Rolling Intensity/Depth Moderate Body Position Hooklying Comments avoiding healing incision performed prior to exercise Self-Care/Home Management Treatment Activities Self-Care/Home Management Activities hamstring stretch and knee flexion with feet on ball added to HEP. PT-OP-T Assessment and Plan Start: 01/01/24 18:29 Freq: Status: Active Protocol: Document 01/21/24 12:51 AB (Rec: 01/21/24 16:23 AB [id number]) Physical Therapy Assessment Goals Four Impairment walking w/FWW Short Term Goal (STG) Pt will be able to walk w/o AD around the house and start short walks of 5 min STG Duration 02/25/24 Jail Goal (LTG) Pt will be able to return to walking at least 1 mile on small hills w/o inc pain greater than 1/10 LTG Duration 04/05 Two Impairment ROM Short Term Goal (STG) Pt will improve R knee AROM to at least 5-95 deg STG Duration 02/25/24 Jail Goal (LTG) Pt will improve R knee AROM to at least 0-120 deg to allow for greater ease w/activities like stairs LTG Duration 04/05/24 One Impairment LEFS 13/80 Short Term Goal (STG) Pt will improve LEFS score to at least 38/80 to show improved functional ability. STG Duration 02/25/24 Jail Goal (LTG) Pt will improve LEFS score to at least 60/80 to show improved functional ability. LTG Duration 04/05/24 Assessment Summary Assessment AROM right knee lacking 8 deg extension to 94 deg flexion reporting the knee pain is about the same end of session. Renetta transfers sit to stand with improved hip hinge and one UE use from mat at lowest height. Physical Therapy Plan Frequency and Duration Frequency of Treatment 2x/Week Duration of treatment (weeks) 12 Plan of Care Start Date 01/12/24 Plan of Care End Date 04/05/24 Next Visit Focus/Plan Next Note Type Treatment Note Next Visit Plan review exercises; stepper and light weight leg press; AAROM w/ball and use of belt manual to improve ROM as able
--- NOTE | 2024-01-23 16:25 | PT.OTN ---
Current Diagnoses Unilateral primary osteoarthritis, right knee (01/23/24) Difficulty in walking, not elsewhere classified (01/23/24) Weakness (01/23/24) Physical Therapy Treatment Note PT-OP-A Visit Information Start: 01/01/24 18:29 Freq: Status: Active Protocol: Document 01/23/24 13:31 AB (Rec: 01/23/24 16:24 AB [id number]) Out-Patient Physical Therapy Visit Information Visit Information Visit Type Treatment Note Visit Note Visit [email or web address] Access Code: [email or web address] Visit Start Time 14:33 Visit Stop Time 15:15 Visit Number 4 Number of [facility] Visits 2 PT-OP-B Current Condition Start: 01/01/24 18:29 Freq: Status: Active Protocol: Document 01/12/24 12:59 [facility] (Rec: 01/12/24 14:59 [facility] [id number]) Current Condition History of Current Condition Onset Date 01/04 Current Complaints R TKA History of Current Condition Pt reports she had a bad knee for 15 years and it got to a point where about Nov, she knew it was time. She couldn't even make it around the grocery store at that time. SHe wants to cont to walk aroudn and travel and do stuff . She lives with her who has been a good helper. Pt has a SLH but has 18 stairs w /rail to get in and knows step to pattern. has a walk in shower and is using a BSC and a raised toilet seat. She has a FWW and cane. Has been indep w/dressing and bathing except helps with socks. DOes have osteoporosis and has started infusion treatments for that. Does also have L knee pain and Treatment Goals Patient/Caregiver Goals be able to travel, at 6 months wants to go to [place], be able to go for walks, be able to walk faster PT-OP-C Subjective Start: 01/01/24 18:29 Freq: Status: Active Protocol: Document 01/23/24 13:31 AB (Rec: 01/23/24 16:24 AB [id number]) OP-PT Subjective Patient Comments Patient Comments Patient reports having increased pain last night difficulty sleeping/ pain behind the knee. Patient reports she is going to use her sofa bed as it is firmer and higher than her bed. AROM 10 deg to 90 deg right knee PT-OP-F Manual Assessment Start: 01/01/24 18:29 Freq: Status: Active Protocol: Document 01/12/24 12:59 [facility]Rec[facility]12[facility]24 [id number] Manual Assessments Other Manual Assessments Other Manual Assessments signficiant bruising throughout lower leg and thigh w/intact dressing w/o excessive drainage PT-OP-G Mobility & Gait Start: 01/01/24 18:29 Freq: Status: Active Protocol: Document 01/12/24 12:59 [facility] (Rec: 01/12/24 14:59 [facility] [id number]) OP Gait Assessment Comments Gait Comments dec RLE stance time, wt shifted towards left; amb wFWW w/smaller strides PT-OP-K Range of Motion Start: 01/01/24 18:29 Freq: Status: Active Protocol: Document 01/12/24 12:59 [facility] (Rec: 01/12/24 14:59 [facility] [id number]) Knee Goniometric Range of Motion Knee Right Flexion Active (degrees) 45 Extension Active (degrees) 16 Left Flexion Active (degrees) 131 Extension Active (degrees) 6 PT-OP-M Strength Start: 01/01/24 18:29 Freq: Status: Active Protocol: Document 01/12/24 12:59 [facility] (Rec: 01/12/24 14:[id number] Hip Strength Hip Manual Muscle Testing Right Flexion (L2) 3 Fair Abduction 4- Good- External Rotation 3 Fair Internal Rotation 3 Fair Left Flexion (L2) 4- Good- Abduction 4 Good External Rotation 3+ Fair+ Internal Rotation 3+ Fair+ Comments clunking in knee Knee Strength Knee Manual Muscle Testing Right Flexion (S2) 3+ Fair+ Extension (L3) 3+ Fair+ Left Flexion (S2) 4+ Good+ Extension (L3) 4+ Good+ Ankle/Foot Strength Ankle and Foot Manual Muscle Testing Right Dorsiflexion (L4) 4 Good Plantarflexion (S1) 3+ Fair+ Left Dorsiflexion (L4) 5 Normal Plantarflexion (S1) 4+ Good+ Comments PF tested seated B PT-OP-Q Treatments Start: 01/01/24 18:29 Freq: Status: Active Protocol: Document 01/23/24 13:31 AB (Rec: 01/23/24 16:24 AB [id number]) Cardio Equipment Recumbent Stepper (Sci-Fit) Duration (Minutes) 4 Resistance 1 Seat Position 9 Other 4.5 minutes Therapeutic Exercises Supine Exercises knee flexion with feet on ball Side bilateral Reps/Minutes 2 minutes hamstring stretch Supine Exercise Name from hooklying Side right Reps/Minutes 60 seconds X 2 SLR Side right Reps/Minutes 10 heel slides Side right Reps/Minutes x10 quad sets Side right Reps/Minutes X10 Sitting Exercises knee extension stretch Sitting Exercise Name with foot on stool Reps/Minutes one min Comments Patient ed to perform with pillow under heel 15 min 4 X a day Therapeutic Activity Therapeutic Activity sit to stand from varying seat heights Name slightly raised seat height Reps/Minutes X2 Comments Verbal cues to flex knee past 90 deg and hip hinge with sit to stand and stand to sit. Manual Therapy Treatment Soft Tissue Mobilization right knee Body Location quad, hamstring, for swelling Mobilization Type Cross-Friction,Rolling Intensity/Depth Moderate Body Position Hooklying Comments avoiding healing incision performed prior to exercise PT-OP-T Assessment and Plan Start: 01/01/24 18:29 Freq: Status: Active Protocol: Document 01/23/24 13:31 AB (Rec: 01/23/24 16:24 AB [id number]) Physical Therapy Assessment Goals Four Impairment walking w/FWW Short Term Goal (STG) Pt will be able to walk w/o AD around the house and start short walks of 5 min STG Duration 02/25/24 [facility] [place] Goal (LTG) Pt will be able to return to walking at least 1 mile on small hills w/o inc pain greater than 1/10 LTG Duration 04/05 Two Impairment ROM Short Term Goal (STG) Pt will improve R knee AROM to at least 5-95 deg STG Duration 02/25/24 Halfway Goal (LTG) Pt will improve R knee AROM to at least 0-120 deg to allow for greater ease w/activities like stairs LTG Duration 04/05/24 One Impairment LEFS 13/80 Short Term Goal (STG) Pt will improve LEFS score to at least 38/80 to show improved functional ability. STG Duration 02/25/24 Halfway Goal (LTG) Pt will improve LEFS score to at least 60/80 to show improved functional ability. LTG Duration 6/10/24 Assessment Summary Assessment AROM right knee flexion 93 deg end of session, with patient commenting the knee feels better end of session. Physical Therapy Plan Frequency and Duration Frequency of Treatment 2x/Week Duration of treatment (weeks) 12 Plan of Care Start Date 01/12/24 Plan of Care End Date 04/05/24 Next Visit Focus/Plan Next Note Type Treatment Note Next Visit Plan review exercises; stepper and light weight leg press; AAROM w/ball and use of belt manual to improve ROM as able
--- NOTE | 2024-01-26 12:18 | PT.OTN ---
Current Diagnoses Unilateral primary osteoarthritis, right knee (01/26/24) Difficulty in walking, not elsewhere classified (01/26/24) Weakness (01/26/24) Physical Therapy Treatment Note PT-OP-A Visit Information Start: 01/01/24 18:29 Freq: Status: Active Protocol: Document 01/26/24 11:23 [facility] (Rec: 01/26/24 12:18 [facility] [id number]) Out-Patient Physical Therapy Visit Information Visit Information Visit Type Treatment Note Visit Note [email or web address] Access Code: [email or web address] Visit Start Time 11:22 Visit Stop Time 12:02 Visit Number 5 Number of PLAY LEADER Visits 0 PT-OP-B Current Condition Start: 01/01/24 18:29 Freq: Status: Active Protocol: Document 01/12/24 12:59 [facility] (Rec: 01/12/24 14:59 [facility] [id number]) Current Condition History of Current Condition Onset Date 01/04 Current Complaints R TKA History of Current Condition Pt reports she had a bad knee for 15 years and it got to a point where about Aug, she knew it was time. She couldn't even make it around the grocery store at that time. SHe wants to cont to walk aroudn and travel and do stuff . She lives with her who has been a good helper. Pt has a SLH but has 18 stairs w /rail to get in and knows step to pattern. has a walk in shower and is using a BSC and a raised toilet seat. She has a FWW and cane. Has been indep w/dressing and bathing except helps with socks. DOes have osteoporosis and has started infusion treatments for that. Does also have L knee pain and Treatment Goals Patient/Caregiver Goals be able to travel, at 6 months wants to go to [place], be able to go for walks, be able to walk faster PT-OP-C Subjective Start: 01/01/24 18:29 Freq: Status: Active Protocol: Document 01/26/24 11:23 [facility] (Rec: 01/26/24 12:18 [facility] [id number]) OP-PT Subjective Patient Comments Patient Comments Pt reprots she tweaked her back last friday putting on compression socks and can still feel it. Hoping to start to wean off cane. PT-OP-F Manual Assessment Start: 01/01/24 18:29 Freq: Status: Active Protocol: Document 01/12/24 12:59 [facility] (Rec: 01/12/24 14:59 [facility] [id number]) Manual Assessments Other Manual Assessments Other Manual Assessments signficiant bruising throughout lower leg and thigh w/intact dressing w/o excessive drainage PT-OP-G Mobility & Gait Start: 01/01/24 18:29 Freq: Status: Active Protocol: Document 01/12/24 12:59 [facility] (Rec: 01/12/24 14:59 [id number] OP Gait Assessment Comments Gait Comments dec RLE stance time, wt shifted towards left; amb wFWW w/smaller strides PT-OP-K Range of Motion Start: 01/01/24 18:29 Freq: Status: Active Protocol: Document 01/12/24 12:59 [facility] (Rec: 01/12/24 14:59 [facility] [id number]) Knee Goniometric Range of Motion Knee Right Flexion Active (degrees) 45 Extension Active (degrees) 16 Left Flexion Active (degrees) 131 Extension Active (degrees) 6 PT-OP-M Strength Start: 01/01/24 18:29 Freq: Status: Active Protocol: Document 01/12/24 12:59 [facility] (Rec: 01/12/24 14:59 [id number] Hip Strength Hip Manual Muscle Testing Right Flexion (L2) 3 Fair Abduction 4- Good- External Rotation 3 Fair Internal Rotation 3 Fair Left Flexion (L2) 4- Good- Abduction 4 Good External Rotation 3+ Fair+ Internal Rotation 3+ Fair+ Comments clunking in knee Knee Strength Knee Manual Muscle Testing Right Flexion (S2) 3+ Fair+ Extension (L3) 3+ Fair+ Left Flexion (S2) 4+ Good+ Extension (L3) 4+ Good+ Ankle/Foot Strength Ankle and Foot Manual Muscle Testing Right Dorsiflexion (L4) 4 Good Plantarflexion (S1) 3+ Fair+ Left Dorsiflexion (L4) 5 Normal Plantarflexion (S1) 4+ Good+ Comments PF tested seated B PT-OP-Q Treatments Start: 01/01/24 18:29 Freq: Status: Active Protocol: Document 01/26/24 11:23 [facility] (Rec: 01/26/24 12:18 [facility] [id number]) Cardio Equipment Recumbent Elliptical ([employer]) Duration (Minutes) 6 Resistance 0-2 Seat Position 7-5 Therapeutic Exercises Supine Exercises SAQ Side right Equipment Used 2# Reps/Minutes 3 sec x10 Sitting Exercises LAQ Side right Equipment Used 2# Reps/Minutes 3 sec x10 Standing Exercises squat Standing Exercise Name mini at bar Side bilateral Equipment Used hands on plinth Reps/Minutes 12 Comments w/PT directing pelvis and max cues sit to stand Side bilateral Reps/Minutes 10 Comments dec UE use Gait Training Gait Activity gait Distance/Duration 100ft w/SPC w/cues for sequence stairs Comments 1.step up 4 in step x10 R w/ rails prn 2.1.step up 6 in step x10 R w/ rails prn Manual Therapy Treatment Soft Tissue Mobilization right knee Body Location HS and calf Mobilization Type Rolling Intensity/Depth Moderate Body Position Hooklying Comments w/AP and calf stretch Joint Mobilizations tibfem Comments AP tibia Patellofemoral Joint R Direction sup, med, inf PT-OP-T Assessment and Plan Start: 01/01/24 18:29 Freq: Status: Active Protocol: Document 01/26/24 11:23 [facility] (Rec: 01/26/24 12:18 [facility] [id number]) Physical Therapy Assessment Goals Four Impairment walking w/FWW Short Term Goal (STG) Pt will be able to walk w/o AD around the house and start short walks of 5 min STG Duration 02/25/24 [facility] Goal (LTG) Pt will be able to return to walking at least 1 mile on small hills w/o inc pain greater than 1/10 LTG Duration 04/05 Two Impairment ROM Short Term Goal (STG) Pt will improve R knee AROM to at least 5-95 deg STG Duration 02/25/24 [facility] Goal (LTG) Pt will improve R knee AROM to at least 0-120 deg to allow for greater ease w/activities like stairs LTG Duration 04/05/24 One Impairment LEFS 13/80 Short Term Goal (STG) Pt will improve LEFS score to at least 38/80 to show improved functional ability. STG Duration 02/25/24 [facility] Goal (LTG) Pt will improve LEFS score to at least 60/80 to show improved functional ability. LTG Duration 04/05/24 Assessment Summary Assessment 4-100 after exercise that improved to 2-104 after manual . She was able to progress to a cane safely and did well with her cane ambulation. Physical Therapy Plan Frequency and Duration Frequency of Treatment 2x/Week Duration of treatment (weeks) 12 Plan of Care Start Date 01/12/24 Plan of Care End Date 04/05/24 Next Visit Focus/Plan Next Note Type Treatment Note Next Visit Plan cont to push for inc ROM and strength of R knee; work on gait
--- NOTE | 2024-01-29 15:41 | PT.OTN ---
Current Diagnoses Unilateral primary osteoarthritis, right knee (01/29/24) Difficulty in walking, not elsewhere classified (01/29/24) Weakness (01/29/24) Physical Therapy Treatment Note PT-OP-A Visit Information Start: 01/01/24 18:29 Freq: Status: Active Protocol: Document 01/29/24 12:44 AB (Rec: 01/29/24 15:41 AB [id number]) Out-Patient Physical Therapy Visit Information Visit Information Visit Type Treatment Note Visit Note [email or web address] Access Code: [email or web address] Visit Start Time 13:46 Visit Stop Time 14:29 Visit Number 6 Number of SALES AND MERCHANDISING ASSOCIATE Visits 1 PT-OP-B Current Condition Start: 01/01/24 18:29 Freq: Status: Active Protocol: Document 01/12/24 12:59 [facility] (Rec: 01/12/24 14:59 [facility] [id number]) Current Condition History of Current Condition Onset Date 01/04 Current Complaints R TKA History of Current Condition Pt reports she had a bad knee for 15 years and it got to a point where about Nov, she knew it was time. She couldn't even make it around the grocery store at that time. SHe wants to cont to walk aroudn and travel and do stuff . She lives with her who has been a good helper. Pt has a SLH but has 18 stairs w /rail to get in and knows step to pattern. has a walk in shower and is using a BSC and a raised toilet seat. She has a FWW and cane. Has been indep w/dressing and bathing except helps with socks. DOes have osteoporosis and has started infusion treatments for that. Does also have L knee pain and Treatment Goals Patient/Caregiver Goals be able to travel, at 6 months wants to go to [place], be able to go for walks, be able to walk faster PT-OP-C Subjective Start: 01/01/24 18:29 Freq: Status: Active Protocol: Document 01/29/24 12:44 AB (Rec: 01/29/24 15:41 AB [id number]) OP-PT Subjective Patient Comments Patient Comments Patient rates right pain 3/10 start of session, reports that she is performing exercises twice a day. Patient reports she just started on the cane, not wanting to wean off cane, hadn't thought about it. Lacking 6 deg extension to 100 deg flexion right knee AROM start of session. SLS right LE without UE use one to less than one second. PT-OP-F Manual Assessment Start: 01/01/24 18:29 Freq: Status: Active Protocol: Document 01/12/24 12:59 [facility] (Rec: 01/12/24 14:59 [id number] Manual Assessments Other Manual Assessments Other Manual Assessments signficiant bruising throughout lower leg and thigh w/intact dressing w/o excessive drainage PT-OP-G Mobility & Gait Start: 01/01/24 18:29 Freq: Status: Active Protocol: Document 01/12/24 12:59 [facility] (Rec: 01/12/24 14:59 [id number] OP Gait Assessment Comments Gait Comments dec RLE stance time, wt shifted towards left; amb wFWW w/smaller strides PT-OP-K Range of Motion Start: 01/01/24 18:29 Freq: Status: Active Protocol: Document 01/12/24 12:59 [facility] (Rec: 01/12/24 14:59 [id number] Knee Goniometric Range of Motion Knee Right Flexion Active (degrees) 45 Extension Active (degrees) 16 Left Flexion Active (degrees) 131 Extension Active (degrees) 6 PT-OP-M Strength Start: 01/01/24 18:29 Freq: Status: Active Protocol: Document 01/12/24 12:59 [facility] (Rec: 01/12/24 14:59 [facility] [id number]) Hip Strength Hip Manual Muscle Testing Right Flexion (L2) 3 Fair Abduction 4- Good- External Rotation 3 Fair Internal Rotation 3 Fair Left Flexion (L2) 4- Good- Abduction 4 Good External Rotation 3+ Fair+ Internal Rotation 3+ Fair+ Comments clunking in knee Knee Strength Knee Manual Muscle Testing Right Flexion (S2) 3+ Fair+ Extension (L3) 3+ Fair+ Left Flexion (S2) 4+ Good+ Extension (L3) 4+ Good+ Ankle/Foot Strength Ankle and Foot Manual Muscle Testing Right Dorsiflexion (L4) 4 Good Plantarflexion (S1) 3+ Fair+ Left Dorsiflexion (L4) 5 Normal Plantarflexion (S1) 4+ Good+ Comments PF tested seated B PT-OP-Q Treatments Start: 01/01/24 18:29 Freq: Status: Active Protocol: Document 01/29/24 12:44 AB (Rec: 01/29/24 15:41 AB [id number]) Therapeutic Exercises Supine Exercises knee flexion with feet on ball Side bilateral Reps/Minutes 2 minutes hamstring stretch Supine Exercise Name from hooklying Side right Reps/Minutes 60 seconds X 2 SLR Side right Reps/Minutes 10 heel slides Side right Reps/Minutes x10 Comments post manual, verbal cues to perform through full ROM Standing Exercises squat Standing Exercise Name mini squat with mat behind then with ball against wall Side bilateral Reps/Minutes X6 then X 10 Comments verbal cues for buttocks back Manual Therapy Treatment Soft Tissue Mobilization right knee Body Location HS quad and and peripatellar area Mobilization Type Rolling Intensity/Depth Moderate Body Position Hooklying Comments w/AP and calf stretch PT-OP-T Assessment and Plan Start: 01/01/24 18:29 Freq: Status: Active Protocol: Document 01/29/24 12:44 AB (Rec: 01/29/24 15:41 AB [id number]) Physical Therapy Assessment Goals Four Impairment walking w/FWW Short Term Goal (STG) Pt will be able to walk w/o AD around the house and start short walks of 5 min STG Duration 02/25/24 Caramel Cutter Hand Goal (LTG) Pt will be able to return to walking at least 1 mile on small hills w/o inc pain greater than 1/10 LTG Duration 04/05 Two Impairment ROM Short Term Goal (STG) Pt will improve R knee AROM to at least 5-95 deg STG Duration 02/25/24 Caramel Cutter Hand Goal (LTG) Pt will improve R knee AROM to at least 0-120 deg to allow for greater ease w/activities like stairs LTG Duration 04/05/24 One Impairment LEFS 13/80 Short Term Goal (STG) Pt will improve LEFS score to at least 38/80 to show improved functional ability. STG Duration 02/25/24 Shelter Goal (LTG) Pt will improve LEFS score to at least 60/80 to show improved functional ability. LTG Duration 04/05/24 Assessment Summary Assessment lacking 4 deg extension to 104 deg bend, reporting right knee is sore end of session and back is still hurting. Physical Therapy Plan Frequency and Duration Frequency of Treatment 2x/Week Duration of treatment (weeks) 12 Plan of Care Start Date 01/12/24 Plan of Care End Date 04/05/24 Next Visit Focus/Plan Next Note Type Treatment Note Next Visit Plan cont to push for inc ROM and strength of R knee; work on gait, balance as tolerated, continue trials of mini squat in clinic to HEP when padmini well with decreased cues.
--- NOTE | 2024-02-03 16:15 | PT.OTN ---
Addendum entered and electronically signed by Yani Villasenor 02/04/24 11:08: PT Liset Patel initiated this session and provided part of the treatment to this patient for this session. Original Note: Current Diagnoses Unilateral primary osteoarthritis, right knee (02/03/24) Difficulty in walking, not elsewhere classified (02/03/24) Weakness (02/03/24) Physical Therapy Treatment Note PT-OP-A Visit Information Start: 01/01/24 18:29 Freq: Status: Active Protocol: Document 02/03/24 14:52 AB (Rec: 02/03/24 16:04 AB [id number]) Out-Patient Physical Therapy Visit Information Visit Information Visit Type Treatment Note Visit Note [email or web address] Access Code: [email or web address] Visit Start Time 14:36 Visit Stop Time 15:29 Visit Number 7 Number of EVIDENCE TECHNICIAN Visits 2 PT-OP-B Current Condition Start: 01/01/24 18:29 Freq: Status: Active Protocol: Document 01/12/24 12:59 [facility] (Rec: 01/12/24 14:59 [facility] [id number]) Current Condition History of Current Condition Onset Date 01/04 Current Complaints R TKA History of Current Condition Pt reports she had a bad knee for 15 years and it got to a point where about Nov, she knew it was time. She couldn't even make it around the grocery store at that time. SHe wants to cont to walk aroudn and travel and do stuff . She lives with her who has been a good helper. Pt has a SLH but has 18 stairs w /rail to get in and knows step to pattern. has a walk in shower and is using a BSC and a raised toilet seat. She has a FWW and cane. Has been indep w/dressing and bathing except helps with socks. DOes have osteoporosis and has started infusion treatments for that. Does also have L knee pain and Treatment Goals Patient/Caregiver Goals be able to travel, at 6 months wants to go to [place], be able to go for walks, be able to walk faster PT-OP-C Subjective Start: 01/01/24 18:29 Freq: Status: Active Protocol: Document 02/03/24 14:52 AB (Rec: 02/03/24 16:09 AB [id number]) OP-PT Subjective Patient Comments Patient Comments Patient reports hamstring and calf is stiff. PT-OP-F Manual Assessment Start: 01/01/24 18:29 Freq: Status: Active Protocol: Document 01/12/24 12:59 [facility] (Rec: 01/12/24 14:59 [facility] [id number]) Manual Assessments Other Manual Assessments Other Manual Assessments signficiant bruising throughout lower leg and thigh w/intact dressing w/o excessive drainage PT-OP-G Mobility & Gait Start: 01/01/24 18:29 Freq: Status: Active Protocol: Document 01/12/24 12:59 [facility] (Rec: 01/12/24 14:59 [facility] [id number]) OP Gait Assessment Comments Gait Comments dec RLE stance time, wt shifted towards left; amb wFWW w/smaller strides PT-OP-K Range of Motion Start: 01/01/24 18:29 Freq: Status: Active Protocol: Document 01/12/24 12:59 [facility] (Rec: 01/12/24 14:59 [facility] [id number]) Knee Goniometric Range of Motion Knee Right Flexion Active (degrees) 45 Extension Active (degrees) 16 Left Flexion Active (degrees) 131 Extension Active (degrees) 6 PT-OP-M Strength Start: 01/01/24 18:29 Freq: Status: Active Protocol: Document 01/12/24 12:59 [facility] (Rec: 01/12/24 14:59 [facility] [id number]) Hip Strength Hip Manual Muscle Testing Right Flexion (L2) 3 Fair Abduction 4- Good- External Rotation 3 Fair Internal Rotation 3 Fair Left Flexion (L2) 4- Good- Abduction 4 Good External Rotation 3+ Fair+ Internal Rotation 3+ Fair+ Comments clunking in knee Knee Strength Knee Manual Muscle Testing Right Flexion (S2) 3+ Fair+ Extension (L3) 3+ Fair+ Left Flexion (S2) 4+ Good+ Extension (L3) 4+ Good+ Ankle/Foot Strength Ankle and Foot Manual Muscle Testing Right Dorsiflexion (L4) 4 Good Plantarflexion (S1) 3+ Fair+ Left Dorsiflexion (L4) 5 Normal Plantarflexion (S1) 4+ Good+ Comments PF tested seated B PT-OP-Q Treatments Start: 01/01/24 18:29 Freq: Status: Active Protocol: Document 02/03/24 14:52 AB (Rec: 02/03/24 16:04 AB [id number]) Cardio Equipment Recumbent Bicycle Duration (Minutes) 6 Seat Position 7 Other fwd/back one full revolution back Gym Equipment Shuttle Recovery Bilateral Squats Resistance light blue band Shuttle Recovery Platform Stable Reps/Time 2X15 Therapeutic Exercises Supine Exercises knee flexion with feet on ball Side bilateral Reps/Minutes 2 minutes hamstring stretch Supine Exercise Name from hooklying Side right Reps/Minutes 60 seconds X 2 Standing Exercises calf stretch on stair Side bilateral Reps/Minutes one minute X 1 Afghan squat Standing Exercise Name with UE use, chair against wall behind Side bilateral Resistance level 5 band behind knees Reps/Minutes X10 Other Exercises 2 inch step up Other Exercise Name with UE use Side right Reps/Minutes X4 Comments reports pressure not pain squat with ball behind back on wall Side bilateral Reps/Minutes X12 Manual Therapy Treatment Soft Tissue Mobilization right knee Body Location HS quad and and peripatellar area Mobilization Type Cross-Friction,Rolling Intensity/Depth Moderate Body Position Hooklying Neuro Re-Education Treatment Balance Activities Marching on large blue cushion Details CGA hands above bars to use as needed Surface Blue cushion Reps/Duration X10 step up taps Details CGA hands above bars to use as needed Equipment 4 inch step Reps/Duration X10 tandem stepping Details CGA hands above bars to use as needed Reps/Duration 10 feet X 6 Comments with head turns and visual scanned last 2 reps hurdles Details CGA hands above bars to use as needed Reps/Duration 4 hurdles X6 Comments difficulty clearing evita X 2 PT-OP-T Assessment and Plan Start: 01/01/24 18:29 Freq: Status: Active Protocol: Document 02/03/24 14:52 AB (Rec: 02/03/24 16:04 AB [id number]) Physical Therapy Assessment Goals Four Impairment walking w/FWW Short Term Goal (STG) Pt will be able to walk w/o AD around the house and start short walks of 5 min STG Duration 02/25/24 Ehs Manager Goal (LTG) Pt will be able to return to walking at least 1 mile on small hills w/o inc pain greater than 1/10 LTG Duration 04/05 Two Impairment ROM Short Term Goal (STG) Pt will improve R knee AROM to at least 5-95 deg STG Duration 02/25/24 Ehs Manager Goal (LTG) Pt will improve R knee AROM to at least 0-120 deg to allow for greater ease w/activities like stairs LTG Duration 04/05/24 One Impairment LEFS 13/80 Short Term Goal (STG) Pt will improve LEFS score to at least 38/80 to show improved functional ability. STG Duration 02/25/24 Ehs Manager Goal (LTG) Pt will improve LEFS score to at least 60/80 to show improved functional ability. LTG Duration 04/05/24 Assessment Summary Assessment Patient reports feeling stiff right knee, but less stiff than she was when she came into this session. Renetta continues to require increased cues for hip hinge, initiated wall with Afghan squat but regressed to quad dominant pattern requiring increased verbal cues final repetitions. Physical Therapy Plan Frequency and Duration Frequency of Treatment 2x/Week Duration of treatment (weeks) 12 Plan of Care Start Date 01/12/24 Plan of Care End Date 04/05/24 Next Visit Focus/Plan Next Note Type Treatment Note Next Visit Plan cont to push for inc ROM and strength of R knee; work on gait, balance as tolerated, continue trials of mini squat in clinic to HEP when padmini well with decreased cues.
--- NOTE | 2024-02-05 09:32 | PT.OTN ---
Current Diagnoses Unilateral primary osteoarthritis, right knee (02/05/24) Difficulty in walking, not elsewhere classified (02/05/24) Weakness (02/05/24) Physical Therapy Treatment Note PT-OP-A Visit Information Start: 01/01/24 18:29 Freq: Status: Active Protocol: Document 02/05/24 08:02 AB (Rec: 02/05/24 09:02 AB [id number]) Out-Patient Physical Therapy Visit Information Visit Information Visit Type Treatment Note Visit Note [email or web address] Access Code: [email or web address] Visit Start Time 08:16 Visit Stop Time 09:00 Visit Number 8 Number of CHAIN SAW DRIVER Visits 3 PT-OP-B Current Condition Start: 01/01/24 18:29 Freq: Status: Active Protocol: Document 01/12/24 12:59 [facility] (Rec: 01/12/24 14:59 [facility] [id number]) Current Condition History of Current Condition Onset Date 01/04 Current Complaints R TKA History of Current Condition Pt reports she had a bad knee for 15 years and it got to a point where about Nov, she knew it was time. She couldn't even make it around the grocery store at that time. SHe wants to cont to walk aroudn and travel and do stuff . She lives with her who has been a good helper. Pt has a SLH but has 18 stairs w /rail to get in and knows step to pattern. has a walk in shower and is using a BSC and a raised toilet seat. She has a FWW and cane. Has been indep w/dressing and bathing except helps with socks. DOes have osteoporosis and has started infusion treatments for that. Does also have L knee pain and Treatment Goals Patient/Caregiver Goals be able to travel, at 6 months wants to go to [place], be able to go for walks, be able to walk faster PT-OP-C Subjective Start: 01/01/24 18:29 Freq: Status: Active Protocol: Document 02/05/24 08:02 AB (Rec: 02/05/24 09:02 AB [id number]) OP-PT Subjective Patient Comments Patient Comments Patient reports feeling less stiff compared to previous session. Patient reports feeling sitffer post exercise. Patient reports her back pain is less today. lacking 11 deg extension to 99 deg flexion start of session AROM right knee PT-OP-F Manual Assessment Start: 01/01/24 18:29 Freq: Status: Active Protocol: Document 01/12/24 12:59 [facility] (Rec: 01/12/24 14:59 [facility] [id number]) Manual Assessments Other Manual Assessments Other Manual Assessments signficiant bruising throughout lower leg and thigh w/intact dressing w/o excessive drainage PT-OP-G Mobility & Gait Start: 01/01/24 18:29 Freq: Status: Active Protocol: Document 01/12/24 12:59 [facility] (Rec: 01/12/24 14:59 [facility] [id number]) OP Gait Assessment Comments Gait Comments dec RLE stance time, wt shifted towards left; amb wFWW w/smaller strides PT-OP-K Range of Motion Start: 01/01/24 18:29 Freq: Status: Active Protocol: Document 01/12/24 12:59 [facility] (Rec: 01/12/24 14:59 [facility] [id number]) Knee Goniometric Range of Motion Knee Right Flexion Active (degrees) 45 Extension Active (degrees) 16 Left Flexion Active (degrees) 131 Extension Active (degrees) 6 PT-OP-M Strength Start: 01/01/24 18:29 Freq: Status: Active Protocol: Document 01/12/24 12:59 [facility] (Rec: 01/12/24 14:59 [facility] [id number]) Hip Strength Hip Manual Muscle Testing Right Flexion (L2) 3 Fair Abduction 4- Good- External Rotation 3 Fair Internal Rotation 3 Fair Left Flexion (L2) 4- Good- Abduction 4 Good External Rotation 3+ Fair+ Internal Rotation 3+ Fair+ Comments clunking in knee Knee Strength Knee Manual Muscle Testing Right Flexion (S2) 3+ Fair+ Extension (L3) 3+ Fair+ Left Flexion (S2) 4+ Good+ Extension (L3) 4+ Good+ Ankle/Foot Strength Ankle and Foot Manual Muscle Testing Right Dorsiflexion (L4) 4 Good Plantarflexion (S1) 3+ Fair+ Left Dorsiflexion (L4) 5 Normal Plantarflexion (S1) 4+ Good+ Comments PF tested seated B PT-OP-Q Treatments Start: 01/01/24 18:29 Freq: Status: Active Protocol: Document 02/05/24 08:02 AB (Rec: 02/05/24 09:02 AB [id number]) Therapeutic Exercises Supine Exercises knee flexion with feet on ball Side bilateral Reps/Minutes 2 minutes hamstring stretch Supine Exercise Name from hooklying Side right Reps/Minutes 60 seconds X 2 SLR Side right Reps/Minutes 12 SAQ Side right Reps/Minutes X15 heel slides Side right Reps/Minutes x10 Comments post manual, verbal cues to perform through full ROM Sitting Exercises seated quad set Side right Reps/Minutes X10 LAQ Side right Reps/Minutes X10 Standing Exercises standing quad set Side right Reps/Minutes X10 squat Standing Exercise Name mini squat Reps/Minutes X10 Comments verbal cues for hip hinge and to stand fully upright with knee straight Manual Therapy Treatment Soft Tissue Mobilization right knee Body Location HS quad and and peripatellar area Mobilization Type Cross-Friction,Rolling Intensity/Depth Moderate Body Position Hooklying Comments HS with LE supported at ankle for stretch during STM Neuro Re-Education Treatment Balance Activities SLS Details close supervision Surface floor Reps/Duration X5 right LE Comments 1-3 sec on initial trial to 6 seconds on final trials Other Activities seated hip abduction with band Details for glute med activation Reps/Duration one minute X1 Comments level one band Self-Care/Home Management Treatment Activities Self-Care/Home Management Activities mini squat added to HEP PT-OP-T Assessment and Plan Start: 01/01/24 18:29 Freq: Status: Active Protocol: Document 02/05/24 08:02 (Rec: 02/05/24 09:02 [id number]) Physical Therapy Assessment Goals Four Impairment walking w/FWW Short Term Goal (STG) Pt will be able to walk w/o AD around the house and start short walks of 5 min STG Duration 02/25/24 Penitentiary Goal (LTG) Pt will be able to return to walking at least 1 mile on small hills w/o inc pain greater than 1/10 LTG Duration 04/05 Two Impairment ROM Short Term Goal (STG) Pt will improve R knee AROM to at least 5-95 deg STG Duration 02/25/24 Penitentiary Goal (LTG) Pt will improve R knee AROM to at least 0-120 deg to allow for greater ease w/activities like stairs LTG Duration 04/05/24 One Impairment LEFS 13/80 Short Term Goal (STG) Pt will improve LEFS score to at least 38/80 to show improved functional ability. STG Duration 02/25/24 Free Lance Model Goal (LTG) Pt will improve LEFS score to at least 60/80 to show improved functional ability. LTG Duration 04/05/24 Assessment Summary Assessment lacking 6 deg extension to 104 deg flexion AROM right knee end of session. Patient with good return demonstration for mini squat this session. Physical Therapy Plan Frequency and Duration Frequency of Treatment 2x/Week Duration of treatment (weeks) 12 Plan of Care Start Date 01/12/24 Plan of Care End Date 04/05/24 Next Visit Focus/Plan Next Note Type Treatment Note Next Visit Plan Assess padmini to squats
--- NOTE | 2024-02-10 16:07 | PT.OTN ---
Current Diagnoses Unilateral primary osteoarthritis, right knee (02/10/24) Difficulty in walking, not elsewhere classified (02/10/24) Weakness (02/10/24) Physical Therapy Treatment Note PT-OP-A Visit Information Start: 01/01/24 18:29 Freq: Status: Active Protocol: Document 02/10/24 15:22 [facility] (Rec: 02/10/24 16:07 [facility] [id number]) Out-Patient Physical Therapy Visit Information Visit Information Visit Type Progress Note Visit Note [email or web address] Access Code: [email or web address] 11/05 Visit Start Time 15:19 Visit Stop Time 16:01 Visit Number 9 Number of GUIDE ESCORT Visits 0 PT-OP-B Current Condition Start: 01/01/24 18:29 Freq: Status: Active Protocol: Document 01/12/24 12:59 [facility] (Rec: 01/12/24 14:59 [facility] [id number]) Current Condition History of Current Condition Onset Date 01/04 Current Complaints R TKA History of Current Condition Pt reports she had a bad knee for 15 years and it got to a point where about Aug, she knew it was time. She couldn't even make it around the grocery store at that time. SHe wants to cont to walk aroudn and travel and do stuff . She lives with her who has been a good helper. Pt has a SLH but has 18 stairs w /rail to get in and knows step to pattern. has a walk in shower and is using a BSC and a raised toilet seat. She has a FWW and cane. Has been indep w/dressing and bathing except helps with socks. DOes have osteoporosis and has started infusion treatments for that. Does also have L knee pain and Treatment Goals Patient/Caregiver Goals be able to travel, at 6 months wants to go to [place], be able to go for walks, be able to walk faster PT-OP-C Subjective Start: 01/01/24 18:29 Freq: Status: Active Protocol: Document 02/10/24 15:22 [facility] (Rec: 02/10/24 16:07 [facility] [id number]) OP-PT Subjective Patient Comments Patient Comments Pt reports she is still held back some by her back being sore. Walked around [employer] on sat PT-OP-F Manual Assessment Start: 01/01/24 18:29 Freq: Status: Active Protocol: Document 01/12/24 12:59 [facility] (Rec: 01/12/24 14:59 [facility] [id number]) Manual Assessments Other Manual Assessments Other Manual Assessments signficiant bruising throughout lower leg and thigh w/intact dressing w/o excessive drainage PT-OP-G Mobility & Gait Start: 01/01/24 18:29 Freq: Status: Active Protocol: Document 01/12/24 12:59 [facility] (Rec: 01/12/24 14:59 [facility] [id number]) OP Gait Assessment Comments Gait Comments dec RLE stance time, wt shifted towards left; amb wFWW w/smaller strides PT-OP-K Range of Motion Start: 01/01/24 18:29 Freq: Status: Active Protocol: Document 02/10/24 15:22 [facility] (Rec: 02/10/24 16:07 [facility] [id number]) Knee Goniometric Range of Motion Knee Right Flexion Active (degrees) 109 Extension Active (degrees) 4 PT-OP-M Strength Start: 01/01/24 18:29 Freq: Status: Active Protocol: Document 02/10/24 15:22 [facility] (Rec: 02/10/24 16:07 [facility] [id number]) Hip Strength Hip Manual Muscle Testing Right Flexion (L2) 4 Good Abduction 4+ Good+ External Rotation 4 Good Internal Rotation 5 Normal Left Flexion (L2) 4- Good- Abduction 4+ Good+ External Rotation 4 Good Internal Rotation 5 Normal Comments pain in back w/hip flex Knee Strength Knee Manual Muscle Testing Right Flexion (S2) 4 Good Extension (L3) 4 Good Left Flexion (S2) 5 Normal Extension (L3) 5 Normal Ankle/Foot Strength Ankle and Foot Manual Muscle Testing Right Dorsiflexion (L4) 4+ Good+ Plantarflexion (S1) 4 Good Comments 10 heel raises Left Dorsiflexion (L4) 5 Normal Plantarflexion (S1) 5 Normal Comments 20 heel raises PT-OP-Q Treatments Start: 01/01/24 18:29 Freq: Status: Active Protocol: Document 02/10/24 15:22 [facility] (Rec: 02/10/24 16:07 [facility] [id number]) Cardio Equipment Recumbent Bicycle Duration (Minutes) 6 Resistance 1 Seat Position 6 Gym Equipment Shuttle Recovery Unilateral Squats Details R Resistance 25# Shuttle Recovery Platform Stable Reps/Time 15 ea Bilateral Squats Resistance 50# (2 navy) Shuttle Recovery Platform Stable Reps/Time 2X15 Therapeutic Exercises Standing Exercises standing quad set Standing Exercise Name TKE Side right Equipment Used L3 Reps/Minutes 15 Comments staggered stance squat Standing Exercise Name mini squat Reps/Minutes X10 Comments verbal cues for hip hinge and to stand fully upright with knee straight Manual Therapy Treatment Soft Tissue Mobilization scar Body Location R Mobilization Type Rolling Intensity/Depth Superficial right knee Body Location HS, add, VMO Mobilization Type Rolling Intensity/Depth Moderate Body Position Hooklying Joint Mobilizations Patellofemoral Joint R Direction sup, med, inf PT-OP-T Assessment and Plan Start: 01/01/24 18:29 Freq: Status: Active Protocol: Document 02/10/24 15:22 [facility] (Rec: 02/10/24 16:07 [facility] [id number]) Physical Therapy Assessment Goals Four Impairment walking w/FWW Short Term Goal (STG) Pt will be able to walk w/o AD around the house and start short walks of 5 min STG Duration achieved 02/09 Half-Way Goal (LTG) Pt will be able to return to walking at least 1 mile on small hills w/o inc pain greater than 1/10 LTG Duration 04/05 Two Impairment ROM Short Term Goal (STG) Pt will improve R knee AROM to at least 5-95 deg STG Duration achieved Java [employer] Developer Goal (LTG) Pt will improve R knee AROM to at least 0-120 deg to allow for greater ease w/activities like stairs 02/09-4-109 LTG Duration 04/05/24 One Impairment LEFS 13/80 Short Term Goal (STG) Pt will improve LEFS score to at least 38/80 to show improved functional ability. STG Duration achieved to 41/80 Java Flex Developer Goal (LTG) Pt will improve LEFS score to at least 60/80 to show improved functional ability. LTG Duration 04/05/24 Assessment Summary Assessment started after exercise 4-109 and improved to 113 after manual. Cont to improve w/ strength and ROM and gait. Pt amb well w/o AD and showing improved strength but weakness still especially w/quads. COnt PT to improve mobility and strength Physical Therapy Plan Frequency and Duration Frequency of Treatment 2x/Week Duration of treatment (weeks) 12 Plan of Care Start Date 01/12/24 Plan of Care End Date 04/05/24 Therapeutic Interventions Therapeutic Interventions Balance Training,Gait Training ,Home Exercise Program,Joint Mobilizations,Manual Therapy, Neuromuscular Re-education, Orthotic/Prosthetic Management ,Patient/Caregiver Education, Self-Care/Home Management,Soft Tissue Mobilization,Taping, Therapeutic Activities, Therapeutic Exercises Modalities Cold Pack/Ice Massage,Electric Stimulation,Hot Packs Next Visit Focus/Plan Next Note Type Treatment Note Next Visit Plan cont to advance squats and quad strength
--- NOTE | 2024-02-12 14:16 | PT.OTN ---
Current Diagnoses Unilateral primary osteoarthritis, right knee (02/12/24) Difficulty in walking, not elsewhere classified (02/12/24) Weakness (02/12/24) Physical Therapy Treatment Note PT-OP-A Visit Information Start: 01/01/24 18:29 Freq: Status: Active Protocol: Document 02/12/24 12:59 [facility] (Rec: 02/12/24 14:14 [facility] [id number]) Out-Patient Physical Therapy Visit Information Visit Information Visit Type Treatment Note Visit Note [email or web address] Access Code: [email or web address] 11/05 Visit Start Time 13:03 Visit Stop Time 13:49 Visit Number 10 Number of TONGUER Visits 1 PT-OP-B Current Condition Start: 01/01/24 18:29 Freq: Status: Active Protocol: Document 01/12/24 12:59 [facility] (Rec: 01/12/24 14:59 [facility] [id number]) Current Condition History of Current Condition Onset Date 01/04 Current Complaints R TKA History of Current Condition Pt reports she had a bad knee for 15 years and it got to a point where about Aug, she knew it was time. She couldn't even make it around the grocery store at that time. SHe wants to cont to walk aroudn and travel and do stuff . She lives with her who has been a good helper. Pt has a SLH but has 18 stairs w /rail to get in and knows step to pattern. has a walk in shower and is using a BSC and a raised toilet seat. She has a FWW and cane. Has been indep w/dressing and bathing except helps with socks. DOes have osteoporosis and has started infusion treatments for that. Does also have L knee pain and Treatment Goals Patient/Caregiver Goals be able to travel, at 6 months wants to go to [place], be able to go for walks, be able to walk faster PT-OP-C Subjective Start: 01/01/24 18:29 Freq: Status: Active Protocol: Document 02/12/24 12:59 [facility] (Rec: 02/12/24 14:14 [facility] [id number]) OP-PT Subjective Patient Comments Patient Comments Patient reports the knee is getting better, cooments she found a stretch that helps her back, but doesn't know if it is a bad idea for the knee, Patient describes child's pose . Lacking 8 deg extension to 114 deg flexion AROM right knee. PT-OP-F Manual Assessment Start: 01/01/24 18:29 Freq: Status: Active Protocol: Document 01/12/24 12:59 [facility] (Rec: 01/12/24 14:59 [facility] [id number]) Manual Assessments Other Manual Assessments Other Manual Assessments signficiant bruising throughout lower leg and thigh w/intact dressing w/o excessive drainage PT-OP-G Mobility & Gait Start: 01/01/24 18:29 Freq: Status: Active Protocol: Document 01/12/24 12:59 [facility] (Rec: 01/12/24 14:59 [facility] [id number]) OP Gait Assessment Comments Gait Comments dec RLE stance time, wt shifted towards left; amb wFWW w/smaller strides PT-OP-K Range of Motion Start: 01/01/24 18:29 Freq: Status: Active Protocol: Document 02/10/24 15:22 [facility] (Rec: 02/10/24 16:07 [facility] [id number]) Knee Goniometric Range of Motion Knee Right Flexion Active (degrees) 109 Extension Active (degrees) 4 PT-OP-M Strength Start: 01/01/24 18:29 Freq: Status: Active Protocol: Document 02/10/24 15:22 [facility] (Rec: 02/10/24 16:07 [facility] [id number]) Hip Strength Hip Manual Muscle Testing Right Flexion (L2) 4 Good Abduction 4+ Good+ External Rotation 4 Good Internal Rotation 5 Normal Left Flexion (L2) 4- Good- Abduction 4+ Good+ External Rotation 4 Good Internal Rotation 5 Normal Comments pain in back w/hip flex Knee Strength Knee Manual Muscle Testing Right Flexion (S2) 4 Good Extension (L3) 4 Good Left Flexion (S2) 5 Normal Extension (L3) 5 Normal Ankle/Foot Strength Ankle and Foot Manual Muscle Testing Right Dorsiflexion (L4) 4+ Good+ Plantarflexion (S1) 4 Good Comments 10 heel raises Left Dorsiflexion (L4) 5 Normal Plantarflexion (S1) 5 Normal Comments 20 heel raises PT-OP-Q Treatments Start: 01/01/24 18:29 Freq: Status: Active Protocol: Document 02/12/24 12:59 [facility] (Rec: 02/12/24 14:14 [facility] [id number]) Therapeutic Exercises Supine Exercises hip and knee extension with band Side right Resistance level 4 band Reps/Minutes X10 hamstring stretch Supine Exercise Name from hooklying Side right Reps/Minutes 60 seconds X 2 SLR Side right Reps/Minutes 10 Sitting Exercises seated hip abduction with band Side bilateral Resistance light blue band Reps/Minutes 2X15 with out hold and one one minute hold LAQ Side right Reps/Minutes X10 X2 second set with level one band Standing Exercises step up step back Standing Exercise Name with UE support ( initaited X 1 with 6 inch step but not tolerated) Side right Equipment Used 4 inch step Reps/Minutes X10 Comments monitored for pain sit to stand Side bilateral Reps/Minutes 10 Comments without UE use Manual Therapy Treatment Soft Tissue Mobilization right knee Body Location HS, quad, lateral and medial right knee Mobilization Type Cross-Friction,Rolling Intensity/Depth Moderate Body Position Hooklying Manual Techniques PROM hamstring stretch Type contract relax Reps/Duration 60 seconds X 2 Comments post STM Self-Care/Home Management Treatment Activities Self-Care/Home Management Activities LAQ with and without band added to HEP, also step up and sit to stand without UE use ( mini squat and sit to stand with UE use removed from HEP ) Seated hip abduction with band added to HEP. PT-OP-T Assessment and Plan Start: 01/01/24 18:29 Freq: Status: Active Protocol: Document 02/12/24 12:59 [facility] (Rec: 02/12/24 14:14 [facility] [id number]) Physical Therapy Assessment Goals Four Impairment walking w/FWW Short Term Goal (STG) Pt will be able to walk w/o AD around the house and start short walks of 5 min STG Duration achieved 02/09 Help Desk Support Specialist Goal (LTG) Pt will be able to return to walking at least 1 mile on small hills w/o inc pain greater than 1/10 LTG Duration 04/05 Two Impairment ROM Short Term Goal (STG) Pt will improve R knee AROM to at least 5-95 deg STG Duration achieved Help Desk Support Specialist Goal (LTG) Pt will improve R knee AROM to at least 0-120 deg to allow for greater ease w/activities like stairs 02/09-4-109 LTG Duration 04/05/24 One Impairment LEFS 13/80 Short Term Goal (STG) Pt will improve LEFS score to at least 38/80 to show improved functional ability. STG Duration achieved to 41/80 Detention Goal (LTG) Pt will improve LEFS score to at least 60/80 to show improved functional ability. LTG Duration 04/05/24 Assessment Summary Assessment AROM right knee extension lacking 5 deg post manual therapy and exercise. Significant improvement with SLS right LE from 3-4 seocnds to 13 seconds post glute med activation this session. Physical Therapy Plan Frequency and Duration Frequency of Treatment 2x/Week Duration of treatment (weeks) 12 Plan of Care Start Date 01/12/24 Plan of Care End Date 04/05/24 Next Visit Focus/Plan Next Note Type Treatment Note Next Visit Plan cont to advance squats and quad strength
--- NOTE | 2024-02-19 12:15 | PT.OTN ---
Current Diagnoses Unilateral primary osteoarthritis, right knee (02/19/24) Difficulty in walking, not elsewhere classified (02/19/24) Weakness (02/19/24) Physical Therapy Treatment Note PT-OP-A Visit Information Start: 01/01/24 18:29 Freq: Status: Active Protocol: Document 02/19/24 11:22 [facility] (Rec: 02/19/24 12:15 [facility] [id number]) Out-Patient Physical Therapy Visit Information Visit Information Visit Type Treatment Note Visit Note [email or web address] Access Code: [email or web address] 01/03 Visit Start Time 11:20 Visit Stop Time 12:00 Visit Number 11 Number of HOG SCRAPER Visits 0 PT-OP-B Current Condition Start: 01/01/24 18:29 Freq: Status: Active Protocol: Document 01/12/24 12:59 [facility] (Rec: 01/12/24 14:59 [facility] [id number]) Current Condition History of Current Condition Onset Date 01/04 Current Complaints R TKA History of Current Condition Pt reports she had a bad knee for 15 years and it got to a point where about Nov, she knew it was time. She couldn't even make it around the grocery store at that time. SHe wants to cont to walk aroudn and travel and do stuff . She lives with her who has been a good helper. Pt has a SLH but has 18 stairs w /rail to get in and knows step to pattern. has a walk in shower and is using a BSC and a raised toilet seat. She has a FWW and cane. Has been indep w/dressing and bathing except helps with socks. DOes have osteoporosis and has started infusion treatments for that. Does also have L knee pain and Treatment Goals Patient/Caregiver Goals be able to travel, at 6 months wants to go to [place], be able to go for walks, be able to walk faster PT-OP-C Subjective Start: 01/01/24 18:29 Freq: Status: Active Protocol: Document 02/19/24 11:22 [facility] (Rec: 02/19/24 12:15 [facility] [id number]) OP-PT Subjective Patient Comments Patient Comments Pt saw surgeon last week and he was pleased w/her mobility. Note she has had done zoey pose on her bed and that helps her back PT-OP-F Manual Assessment Start: 01/01/24 18:29 Freq: Status: Active Protocol: Document 01/12/24 12:59 [facility] (Rec: 01/12/24 14:59 [facility] [id number]) Manual Assessments Other Manual Assessments Other Manual Assessments signficiant bruising throughout lower leg and thigh w/intact dressing w/o excessive drainage PT-OP-G Mobility & Gait Start: 01/01/24 18:29 Freq: Status: Active Protocol: Document 01/12/24 12:59 [facility] (Rec: 01/12/24 14:59 [facility] [id number]) OP Gait Assessment Comments Gait Comments dec RLE stance time, wt shifted towards left; amb wFWW w/smaller strides PT-OP-K Range of Motion Start: 01/01/24 18:29 Freq: Status: Active Protocol: Document 02/10/24 15:22 [facility] (Rec: 02/10/24 16:07 [facility] [id number]) Knee Goniometric Range of Motion Knee Right Flexion Active (degrees) 109 Extension Active (degrees) 4 PT-OP-M Strength Start: 01/01/24 18:29 Freq: Status: Active Protocol: Document 02/10/24 15:22 [facility] (Rec: 02/10/24 16:07 [facility] [id number]) Hip Strength Hip Manual Muscle Testing Right Flexion (L2) 4 Good Abduction 4+ Good+ External Rotation 4 Good Internal Rotation 5 Normal Left Flexion (L2) 4- Good- Abduction 4+ Good+ External Rotation 4 Good Internal Rotation 5 Normal Comments pain in back w/hip flex Knee Strength Knee Manual Muscle Testing Right Flexion (S2) 4 Good Extension (L3) 4 Good Left Flexion (S2) 5 Normal Extension (L3) 5 Normal Ankle/Foot Strength Ankle and Foot Manual Muscle Testing Right Dorsiflexion (L4) 4+ Good+ Plantarflexion (S1) 4 Good Comments 10 heel raises Left Dorsiflexion (L4) 5 Normal Plantarflexion (S1) 5 Normal Comments 20 heel raises PT-OP-Q Treatments Start: 01/01/24 18:29 Freq: Status: Active Protocol: Document 02/19/24 11:22 [facility] (Rec: 02/19/24 12:15 [facility] [id number]) Cardio Equipment Recumbent Bicycle Duration (Minutes) 5 Resistance 6 Seat Position 6 Therapeutic Exercises Standing Exercises step up step back Standing Exercise Name 1. fwd step up 2. lat step up 3. fwd step down/back up Side right Equipment Used 4 in step w/1-2 rail prn; 6 in step Reps/Minutes 10 ea exercise, ea height Comments cues control standing quad set Standing Exercise Name TKE Side right Equipment Used L3 Reps/Minutes 15 Comments staggered stance, cues control squat Standing Exercise Name mini squat Reps/Minutes X10 Comments verbal cues for hip hinge and to stand fully upright with knee straight sit to stand Side bilateral Reps/Minutes 10 Comments without UE use Other Exercises 2 inch step up Reps/Minutes 10 Manual Therapy Treatment Soft Tissue Mobilization scar Body Location R Mobilization Type Rolling Intensity/Depth Superficial Comments sup aspect w/flex Joint Mobilizations tibfem Comments AP tib FM Patellofemoral Joint R Direction sup, med, inf PT-OP-T Assessment and Plan Start: 01/01/24 18:29 Freq: Status: Active Protocol: Document 02/19/24 11:22 [facility] (Rec: 02/19/24 12:15 [facility] [id number]) Physical Therapy Assessment Goals Four Impairment walking w/FWW Short Term Goal (STG) Pt will be able to walk w/o AD around the house and start short walks of 5 min STG Duration achieved 02/09 Media Intern Goal (LTG) Pt will be able to return to walking at least 1 mile on small hills w/o inc pain greater than 1/10 LTG Duration 04/05 Two Impairment ROM Short Term Goal (STG) Pt will improve R knee AROM to at least 5-95 deg STG Duration achieved Media Intern Goal (LTG) Pt will improve R knee AROM to at least 0-120 deg to allow for greater ease w/activities like stairs 02/09-4-109 LTG Duration 04/05/24 One Impairment LEFS 13/80 Short Term Goal (STG) Pt will improve LEFS score to at least 38/80 to show improved functional ability. STG Duration achieved to 41/80 Assisted Goal (LTG) Pt will improve LEFS score to at least 60/80 to show improved functional ability. LTG Duration 04/05/24 Assessment Summary Assessment After manual 1-116 today with improved tolerance w/steps today. Cues needed for control and rail still needed for balance. Imporved tolerance for squats Physical Therapy Plan Frequency and Duration Frequency of Treatment 2x/Week Duration of treatment (weeks) 12 Plan of Care Start Date 01/12/24 Plan of Care End Date 04/05/24 Next Visit Focus/Plan Next Note Type Treatment Note Next Visit Plan cont to advance squats, stairs , and quad strength
--- NOTE | 2024-02-23 14:43 | PT.OTN ---
Current Diagnoses Unilateral primary osteoarthritis, right knee (02/23/24) Difficulty in walking, not elsewhere classified (02/23/24) Weakness (02/23/24) Physical Therapy Treatment Note PT-OP-A Visit Information Start: 01/01/24 18:29 Freq: Status: Active Protocol: Document 02/23/24 12:42 AB (Rec: 02/23/24 14:43 AB [id number]) Out-Patient Physical Therapy Visit Information Visit Information Visit Type Treatment Note Visit Note [email or web address] Access Code: [email or web address] 01/03 Visit Start Time 13:48 Visit Stop Time 14:31 Visit Number 12 Number of ELOCUTION TEACHER Visits 1 PT-OP-B Current Condition Start: 01/01/24 18:29 Freq: Status: Active Protocol: Document 01/12/24 12:59 [facility] (Rec: 01/12/24 14:59 [facility] [id number]) Current Condition History of Current Condition Onset Date 01/04 Current Complaints R TKA History of Current Condition Pt reports she had a bad knee for 15 years and it got to a point where about Aug, she knew it was time. She couldn't even make it around the grocery store at that time. SHe wants to cont to walk aroudn and travel and do stuff . She lives with her who has been a good helper. Pt has a SLH but has 18 stairs w /rail to get in and knows step to pattern. has a walk in shower and is using a BSC and a raised toilet seat. She has a FWW and cane. Has been indep w/dressing and bathing except helps with socks. DOes have osteoporosis and has started infusion treatments for that. Does also have L knee pain and Treatment Goals Patient/Caregiver Goals be able to travel, at 6 months wants to go to [place], be able to go for walks, be able to walk faster PT-OP-C Subjective Start: 01/01/24 18:29 Freq: Status: Active Protocol: Document 02/23/24 12:42 AB (Rec: 02/23/24 14:43 AB [id number]) OP-PT Subjective Patient Comments Patient Comments Patient reports the knee is stiff/stiffer, the back pain is turning into hip soreness. AROM right knee lackin 7 deg to 112 deg start of session. PT-OP-F Manual Assessment Start: 01/01/24 18:29 Freq: Status: Active Protocol: Document 01/12/24 12:59 [facility] (Rec: 01/12/24 14:59 [facility] [id number]) Manual Assessments Other Manual Assessments Other Manual Assessments signficiant bruising throughout lower leg and thigh w/intact dressing w/o excessive drainage PT-OP-G Mobility & Gait Start: 01/01/24 18:29 Freq: Status: Active Protocol: Document 01/12/24 12:59 [facility] (Rec: 01/12/24 14:59 [facility] [id number]) OP Gait Assessment Comments Gait Comments dec RLE stance time, wt shifted towards left; amb wFWW w/smaller strides PT-OP-K Range of Motion Start: 01/01/24 18:29 Freq: Status: Active Protocol: Document 02/10/24 15:22 [facility] (Rec: 02/10/24 16:07 [facility] [id number]) Knee Goniometric Range of Motion Knee Right Flexion Active (degrees) 109 Extension Active (degrees) 4 PT-OP-M Strength Start: 01/01/24 18:29 Freq: Status: Active Protocol: Document 02/10/24 15:22 [facility] (Rec: 02/10/24 16:07 [facility] [id number]) Hip Strength Hip Manual Muscle Testing Right Flexion (L2) 4 Good Abduction 4+ Good+ External Rotation 4 Good Internal Rotation 5 Normal Left Flexion (L2) 4- Good- Abduction 4+ Good+ External Rotation 4 Good Internal Rotation 5 Normal Comments pain in back w/hip flex Knee Strength Knee Manual Muscle Testing Right Flexion (S2) 4 Good Extension (L3) 4 Good Left Flexion (S2) 5 Normal Extension (L3) 5 Normal Ankle/Foot Strength Ankle and Foot Manual Muscle Testing Right Dorsiflexion (L4) 4+ Good+ Plantarflexion (S1) 4 Good Comments 10 heel raises Left Dorsiflexion (L4) 5 Normal Plantarflexion (S1) 5 Normal Comments 20 heel raises PT-OP-Q Treatments Start: 01/01/24 18:29 Freq: Status: Active Protocol: Document 02/23/24 12:42 AB (Rec: 02/23/24 14:43 AB [id number]) Therapeutic Exercises Supine Exercises knee flexion with feet on ball Side bilateral Reps/Minutes 2 minutes hamstring stretch Supine Exercise Name from hooklying Side right Reps/Minutes 60 seconds X 2 heel slides Side right Reps/Minutes x10 Comments post manual, verbal cues to perform through full ROM Sitting Exercises seated hip abduction with band Side bilateral Resistance Teal band level 2 Reps/Minutes 2X15 with out hold and one one minute hold Standing Exercises side stepping with band Resistance level band Reps/Minutes 10 feet right 5 feet left Comments reports increased left hip pain with side stepping left step up step back Standing Exercise Name 6 inch step with UE support Reps/Minutes 2X15 Comments Monitored for pain Manual Therapy Treatment Soft Tissue Mobilization scar Body Location R knee scar tissue, peripatellar area Mobilization Type Cross-Friction,Rolling Intensity/Depth Superficial Body Position Hooklying Comments and moderate Joint Mobilizations Patellofemoral Joint R Direction sup, med, inf PT-OP-T Assessment and Plan Start: 01/01/24 18:29 Freq: Status: Active Protocol: Document 02/23/24 12:42 AB (Rec: 02/23/24 14:43 AB [id number]) Physical Therapy Assessment Goals Four Impairment walking w/FWW Short Term Goal (STG) Pt will be able to walk w/o AD around the house and start short walks of 5 min STG Duration achieved 02/09 Bedspread Folder Goal (LTG) Pt will be able to return to walking at least 1 mile on small hills w/o inc pain greater than 1/10 LTG Duration 04/05 Two Impairment ROM Short Term Goal (STG) Pt will improve R knee AROM to at least 5-95 deg STG Duration achieved Bedspread Folder Goal (LTG) Pt will improve R knee AROM to at least 0-120 deg to allow for greater ease w/activities like stairs 02/09-4-109 LTG Duration 04/05/24 One Impairment LEFS 13/80 Short Term Goal (STG) Pt will improve LEFS score to at least 38/80 to show improved functional ability. STG Duration achieved to 41/80 Fci Goal (LTG) Pt will improve LEFS score to at least 60/80 to show improved functional ability. LTG Duration 04/05/24 Assessment Summary Assessment After manual and exercise, lacking 3 deg extension to 117 deg flexion AROM right knee, reports knee is stiff not pain , comments back pain is 2-3/10 . Physical Therapy Plan Frequency and Duration Frequency of Treatment 2x/Week Duration of treatment (weeks) 12 Plan of Care Start Date 01/12/24 Plan of Care End Date 04/05/24 Next Visit Focus/Plan Next Note Type Treatment Note Next Visit Plan cont to advance squats, stairs , and quad strength
--- NOTE | 2024-02-25 12:08 | PT.OTN ---
Current Diagnoses Unilateral primary osteoarthritis, right knee (02/25/24) Difficulty in walking, not elsewhere classified (02/25/24) Weakness (02/25/24) Physical Therapy Treatment Note PT-OP-A Visit Information Start: 01/01/24 18:29 Freq: Status: Active Protocol: Document 02/25/24 11:29 [facility] (Rec: 02/25/24 12:08 [facility] [id number]) Out-Patient Physical Therapy Visit Information Visit Information Visit Type Treatment Note Visit Note [email or web address] Access Code: [email or web address] 02/03 Visit Start Time 11:22 Visit Stop Time 12:00 Visit Number 13 Number of REFRACTORY MANAGER Visits 0 PT-OP-B Current Condition Start: 01/01/24 18:29 Freq: Status: Active Protocol: Document 01/12/24 12:59 [facility] (Rec: 01/12/24 14:59 [facility] [id number]) Current Condition History of Current Condition Onset Date 01/04 Current Complaints R TKA History of Current Condition Pt reports she had a bad knee for 15 years and it got to a point where about Aug, she knew it was time. She couldn't even make it around the grocery store at that time. SHe wants to cont to walk aroudn and travel and do stuff . She lives with her who has been a good helper. Pt has a SLH but has 18 stairs w /rail to get in and knows step to pattern. has a walk in shower and is using a BSC and a raised toilet seat. She has a FWW and cane. Has been indep w/dressing and bathing except helps with socks. DOes have osteoporosis and has started infusion treatments for that. Does also have L knee pain and Treatment Goals Patient/Caregiver Goals be able to travel, at 6 months wants to go to [place], be able to go for walks, be able to walk faster PT-OP-C Subjective Start: 01/01/24 18:29 Freq: Status: Active Protocol: Document 02/25/24 11:29 [facility] (Rec: 02/25/24 12:08 [facility] [id number]) OP-PT Subjective Patient Comments Patient Comments Knee feels stiff but is improving PT-OP-F Manual Assessment Start: 01/01/24 18:29 Freq: Status: Active Protocol: Document 01/12/24 12:59 [facility] (Rec: 01/12/24 14:59 [facility] [id number]) Manual Assessments Other Manual Assessments Other Manual Assessments signficiant bruising throughout lower leg and thigh w/intact dressing w/o excessive drainage PT-OP-G Mobility & Gait Start: 01/01/24 18:29 Freq: Status: Active Protocol: Document 01/12/24 12:59 [facility] (Rec: 01/12/24 14:59 [facility] [id number]) OP Gait Assessment Comments Gait Comments dec RLE stance time, wt shifted towards left; amb wFWW w/smaller strides PT-OP-K Range of Motion Start: 01/01/24 18:29 Freq: Status: Active Protocol: Document 02/10/24 15:22 [facility] (Rec: 02/10/24 16:07 [facility] [id number]) Knee Goniometric Range of Motion Knee Right Flexion Active (degrees) 109 Extension Active (degrees) 4 PT-OP-M Strength Start: 01/01/24 18:29 Freq: Status: Active Protocol: Document 02/10/24 15:22 [facility] (Rec: 02/10/24 16:07 [facility] [id number]) Hip Strength Hip Manual Muscle Testing Right Flexion (L2) 4 Good Abduction 4+ Good+ External Rotation 4 Good Internal Rotation 5 Normal Left Flexion (L2) 4- Good- Abduction 4+ Good+ External Rotation 4 Good Internal Rotation 5 Normal Comments pain in back w/hip flex Knee Strength Knee Manual Muscle Testing Right Flexion (S2) 4 Good Extension (L3) 4 Good Left Flexion (S2) 5 Normal Extension (L3) 5 Normal Ankle/Foot Strength Ankle and Foot Manual Muscle Testing Right Dorsiflexion (L4) 4+ Good+ Plantarflexion (S1) 4 Good Comments 10 heel raises Left Dorsiflexion (L4) 5 Normal Plantarflexion (S1) 5 Normal Comments 20 heel raises PT-OP-Q Treatments Start: 01/01/24 18:29 Freq: Status: Active Protocol: Document 02/25/24 11:29 [facility] (Rec: 02/25/24 12:08 [facility] [id number]) Cardio Equipment Recumbent Bicycle Duration (Minutes) 6 Resistance 6 Seat Position 6 Therapeutic Exercises Supine Exercises core Supine Exercise Name SL flex isometric Side bilateral Reps/Minutes 30 sec bridge Supine Exercise Name 1. pelvic tilt 2. pelvic tilt to bridge Side bilateral Reps/Minutes 10 ea Comments manual facilaition for first few reps of bridge w/traction LEs heel slides Side right Reps/Minutes x10 Comments post manual, verbal cues to perform through full ROM Standing Exercises TKE Side right Resistance L2 Reps/Minutes 15 Comments cues no hip rot & control side stepping with band Side bilateral Resistance lvl 1 band Reps/Minutes 10ft B step up step back Standing Exercise Name 1. fwd step up 2. lat step up 3. fwd step down/back up Side right Equipment Used 6 in step w/rail Reps/Minutes 10 ea Comments cues control Manual Therapy Treatment Soft Tissue Mobilization scar Body Location R knee scar tissue, peripatellar area Mobilization Type Cross-Friction,Rolling Intensity/Depth sup t mod Body Position Hooklying Comments w/ext and flex Joint Mobilizations tibfem Comments AP tib and femur FM Patellofemoral Joint R Direction sup, med, inf PT-OP-T Assessment and Plan Start: 01/01/24 18:29 Freq: Status: Active Protocol: Document 02/25/24 11:29 [facility] (Rec: 02/25/24 12:08 [facility] [id number]) Physical Therapy Assessment Goals Four Impairment walking w/FWW Short Term Goal (STG) Pt will be able to walk w/o AD around the house and start short walks of 5 min STG Duration achieved 02/09 Longterm Goal (LTG) Pt will be able to return to walking at least 1 mile on small hills w/o inc pain greater than 1/10 LTG Duration 04/05 Two Impairment ROM Short Term Goal (STG) Pt will improve R knee AROM to at least 5-95 deg STG Duration achieved Longterm Goal (LTG) Pt will improve R knee AROM to at least 0-120 deg to allow for greater ease w/activities like stairs 02/09--109 LTG Duration 04/05/24 One Impairment LEFS 13/80 Short Term Goal (STG) Pt will improve LEFS score to at least 38/80 to show improved functional ability. STG Duration achieved to 41/80 Longterm Goal (LTG) Pt will improve LEFS score to at least 60/80 to show improved functional ability. LTG Duration 04/05/24 Assessment Summary Assessment Pt started after exercise w/5- 118 and after manual was 0-121 . Had impaired gait pattern likely d/t SIJ rot and will benefit from work at SIJ to help dec pain and improve gait . Physical Therapy Plan Frequency and Duration Frequency of Treatment 2x/Week Duration of treatment (weeks) 12 Plan of Care Start Date 01/12/24 Plan of Care End Date 04/05/24 Next Visit Focus/Plan Next Note Type Treatment Note Next Visit Plan cont to advance squats, stairs , and quad strength
--- NOTE | 2024-03-01 12:34 | PT.OTN ---
Current Diagnoses Unilateral primary osteoarthritis, right knee (03/01/24) Difficulty in walking, not elsewhere classified (03/01/24) Weakness (03/01/24) Physical Therapy Treatment Note PT-OP-A Visit Information Start: 01/01/24 18:29 Freq: Status: Active Protocol: Document 03/01/24 11:18 AB (Rec: 03/01/24 12:34 AB [id number]) Out-Patient Physical Therapy Visit Information Visit Information Visit Type Treatment Note Visit Note 04/05 for PN Access Code: [email or web address] 03/05 Visit Start Time 11:19 Visit Stop Time 12:02 Visit Number 14 Number of EARLY CHILDHOOD DIRECTOR Visits 1 PT-OP-B Current Condition Start: 01/01/24 18:29 Freq: Status: Active Protocol: Document 01/12/24 12:59 [facility] (Rec: 01/12/24 14:59 [facility] [id number]) Current Condition History of Current Condition Onset Date 01/04 Current Complaints R TKA History of Current Condition Pt reports she had a bad knee for 15 years and it got to a point where about Nov, she knew it was time. She couldn't even make it around the grocery store at that time. SHe wants to cont to walk aroudn and travel and do stuff . She lives with her who has been a good helper. Pt has a SLH but has 18 stairs w /rail to get in and knows step to pattern. has a walk in shower and is using a BSC and a raised toilet seat. She has a FWW and cane. Has been indep w/dressing and bathing except helps with socks. DOes have osteoporosis and has started infusion treatments for that. Does also have L knee pain and Treatment Goals Patient/Caregiver Goals be able to travel, at 6 months wants to go to [place], be able to go for walks, be able to walk faster PT-OP-C Subjective Start: 01/01/24 18:29 Freq: Status: Active Protocol: Document 03/01/24 11:18 AB (Rec: 03/01/24 12:34 AB [id number]) OP-PT Subjective Patient Comments Patient Comments Patient reports she is unable to descend stairs with a reciprocal pattern, but is able to use a reciprocal pattern with ascending ascending ( with rails ) Back pain continues to be a problem . lacking 7 deg extension to 114 deg flexion AROM right knee start of session. PT-OP-F Manual Assessment Start: 01/01/24 18:29 Freq: Status: Active Protocol: Document 01/12/24 12:59 [facility] (Rec: 01/12/24 14:59 [facility] [id number]) Manual Assessments Other Manual Assessments Other Manual Assessments signficiant bruising throughout lower leg and thigh w/intact dressing w/o excessive drainage PT-OP-G Mobility & Gait Start: 01/01/24 18:29 Freq: Status: Active Protocol: Document 01/12/24 12:59 [facility] (Rec: 01/12/24 14:59 [facility] [id number]) OP Gait Assessment Comments Gait Comments dec RLE stance time, wt shifted towards left; amb wFWW w/smaller strides PT-OP-K Range of Motion Start: 01/01/24 18:29 Freq: Status: Active Protocol: Document 02/10/24 15:22 [facility] (Rec: 02/10/24 16:07 [facility] [id number]) Knee Goniometric Range of Motion Knee Right Flexion Active (degrees) 109 Extension Active (degrees) 4 PT-OP-M Strength Start: 01/01/24 18:29 Freq: Status: Active Protocol: Document 02/10/24 15:22 [facility] (Rec: 02/10/24 16:07 [facility] [id number]) Hip Strength Hip Manual Muscle Testing Right Flexion (L2) 4 Good Abduction 4+ Good+ External Rotation 4 Good Internal Rotation 5 Normal Left Flexion (L2) 4- Good- Abduction 4+ Good+ External Rotation 4 Good Internal Rotation 5 Normal Comments pain in back w/hip flex Knee Strength Knee Manual Muscle Testing Right Flexion (S2) 4 Good Extension (L3) 4 Good Left Flexion (S2) 5 Normal Extension (L3) 5 Normal Ankle/Foot Strength Ankle and Foot Manual Muscle Testing Right Dorsiflexion (L4) 4+ Good+ Plantarflexion (S1) 4 Good Comments 10 heel raises Left Dorsiflexion (L4) 5 Normal Plantarflexion (S1) 5 Normal Comments 20 heel raises PT-OP-Q Treatments Start: 01/01/24 18:29 Freq: Status: Active Protocol: Document 03/01/24 11:18 AB (Rec: 03/01/24 12:34 AB [id number]) Cardio Equipment Recumbent Elliptical (Biodex) Duration (Minutes) 3 Resistance 1 Seat Position 9 Other set up for full extension. Therapeutic Exercises Supine Exercises knee flexion with feet on ball Side bilateral Reps/Minutes 2 minutes hamstring stretch Supine Exercise Name from hooklying Side right Reps/Minutes 60 seconds X 3 Sitting Exercises seated hip abduction with band Side bilateral Resistance Teal band level 2 Reps/Minutes one minute hold X 1 Standing Exercises step up step back Standing Exercise Name 1. fwd step up 2. lat step up 3. fwd step down/back up Side right Equipment Used 6 in step w/rail for fwd step up and lat, 4 inch step for step down fwd Reps/Minutes 10 ea Comments cues control Manual Therapy Treatment Soft Tissue Mobilization scar Body Location R knee scar tissue, peripatellar area Mobilization Type Cross-Friction,Rolling Intensity/Depth sup t mod Body Position Hooklying right knee Body Location HS, lateral and medial right knee Mobilization Type Cross-Friction,Rolling Intensity/Depth Moderate Body Position Hooklying Self-Care/Home Management Treatment Education Other Education Pt ed importance of performing stair exercises for carryover /increased strength to be able to descend stairs with a reciprocal pattern. PT-OP-T Assessment and Plan Start: 01/01/24 18:29 Freq: Status: Active Protocol: Document 03/01/24 11:18 AB (Rec: 03/01/24 12:34 AB [id number]) Physical Therapy Assessment Goals Four Impairment walking w/FWW Short Term Goal (STG) Pt will be able to walk w/o AD around the house and start short walks of 5 min STG Duration achieved 02/09 Assisted Goal (LTG) Pt will be able to return to walking at least 1 mile on small hills w/o inc pain greater than 1/10 LTG Duration 04/05 Two Impairment ROM Short Term Goal (STG) Pt will improve R knee AROM to at least 5-95 deg STG Duration achieved Elementary Esl Teacher Goal (LTG) Pt will improve R knee AROM to at least 0-120 deg to allow for greater ease w/activities like stairs 02/09- LTG Duration 04/05/24 One Impairment LEFS 13/80 Short Term Goal (STG) Pt will improve LEFS score to at least 38/80 to show improved functional ability. STG Duration achieved to 41/80 Assisted Goal (LTG) Pt will improve LEFS score to at least 60/80 to show improved functional ability. LTG Duration 04/05/24 Assessment Summary Assessment lacking 5 to 119 AROM right knee end of session with patient reporting having no knee pain, and back pain is the same. Step down fwd continues to be limited by pain. Physical Therapy Plan Frequency and Duration Frequency of Treatment 2x/Week Duration of treatment (weeks) 12 Plan of Care Start Date 01/12/24 Plan of Care End Date 04/05/24 Therapeutic Interventions Therapeutic Interventions Balance Training,Gait Training ,Home Exercise Program,Joint Mobilizations,Manual Therapy, Neuromuscular Re-education, Orthotic/Prosthetic Management ,Patient/Caregiver Education, Self-Care/Home Management,Soft Tissue Mobilization,Taping, Therapeutic Activities, Therapeutic Exercises Modalities Cold Pack/Ice Massage,Electric Stimulation,Hot Packs Next Visit Focus/Plan Next Note Type Treatment Note Next Visit Plan cont to advance squats, stairs , and quad strength
--- NOTE | 2024-03-03 12:51 | PT.OTN ---
Current Diagnoses Unilateral primary osteoarthritis, right knee (03/03/24) Difficulty in walking, not elsewhere classified (03/03/24) Weakness (03/03/24) Physical Therapy Treatment Note PT-OP-A Visit Information Start: 01/01/24 18:29 Freq: Status: Active Protocol: Document 03/03/24 11:16 AB (Rec: 03/03/24 12:51 AB [id number]) Out-Patient Physical Therapy Visit Information Visit Information Visit Type Treatment Note Visit Note 05/05 for PN Access Code: [email or web address] Visit Start Time 11:18 Visit Stop Time 12:03 Visit Number 15 Number of CADD DRAFTER Visits 2 PT-OP-B Current Condition Start: 01/01/24 18:29 Freq: Status: Active Protocol: Document 01/12/24 12:59 [facility] (Rec: 01/12/24 14:59 [facility] [id number]) Current Condition History of Current Condition Onset Date 01/04 Current Complaints R TKA History of Current Condition Pt reports she had a bad knee for 15 years and it got to a point where about Aug, she knew it was time. She couldn't even make it around the grocery store at that time. SHe wants to cont to walk aroudn and travel and do stuff . She lives with her who has been a good helper. Pt has a SLH but has 18 stairs w /rail to get in and knows step to pattern. has a walk in shower and is using a BSC and a raised toilet seat. She has a FWW and cane. Has been indep w/dressing and bathing except helps with socks. DOes have osteoporosis and has started infusion treatments for that. Does also have L knee pain and Treatment Goals Patient/Caregiver Goals be able to travel, at 6 months wants to go to [place], be able to go for walks, be able to walk faster PT-OP-C Subjective Start: 01/01/24 18:29 Freq: Status: Active Protocol: Document 03/03/24 11:16 AB (Rec: 03/03/24 12:51 AB [id number]) OP-PT Subjective Patient Comments Patient Comments Patient rates right knee pain 2/10, reports the back is getting better slowly. lacking 3 deg extension to 117 deg flexion AROM right knee start of session. PT-OP-F Manual Assessment Start: 01/01/24 18:29 Freq: Status: Active Protocol: Document 01/12/24 12:59 [facility] (Rec: 01/12/24 14:59 [facility] [id number]) Manual Assessments Other Manual Assessments Other Manual Assessments signficiant bruising throughout lower leg and thigh w/intact dressing w/o excessive drainage PT-OP-G Mobility & Gait Start: 01/01/24 18:29 Freq: Status: Active Protocol: Document 01/12/24 12:59 [facility] (Rec: 01/12/24 14:59 [facility] [id number]) OP Gait Assessment Comments Gait Comments dec RLE stance time, wt shifted towards left; amb wFWW w/smaller strides PT-OP-K Range of Motion Start: 01/01/24 18:29 Freq: Status: Active Protocol: Document 02/10/24 15:22 [facility] (Rec: 02/10/24 16:07 [facility] [id number]) Knee Goniometric Range of Motion Knee Right Flexion Active (degrees) 109 Extension Active (degrees) 4 PT-OP-M Strength Start: 01/01/24 18:29 Freq: Status: Active Protocol: Document 02/10/24 15:22 [facility] (Rec: 02/10/24 16:07 [facility] [id number]) Hip Strength Hip Manual Muscle Testing Right Flexion (L2) 4 Good Abduction 4+ Good+ External Rotation 4 Good Internal Rotation 5 Normal Left Flexion (L2) 4- Good- Abduction 4+ Good+ External Rotation 4 Good Internal Rotation 5 Normal Comments pain in back w/hip flex Knee Strength Knee Manual Muscle Testing Right Flexion (S2) 4 Good Extension (L3) 4 Good Left Flexion (S2) 5 Normal Extension (L3) 5 Normal Ankle/Foot Strength Ankle and Foot Manual Muscle Testing Right Dorsiflexion (L4) 4+ Good+ Plantarflexion (S1) 4 Good Comments 10 heel raises Left Dorsiflexion (L4) 5 Normal Plantarflexion (S1) 5 Normal Comments 20 heel raises PT-OP-Q Treatments Start: 01/01/24 18:29 Freq: Status: Active Protocol: Document 03/03/24 11:16 AB (Rec: 03/03/24 12:51 AB [id number]) Therapeutic Exercises Supine Exercises hamstring stretch Supine Exercise Name from hooklying Side right Reps/Minutes 60 seconds X 3 SLR Side right Reps/Minutes 10 Sitting Exercises seated quad set Side right Reps/Minutes X10 Standing Exercises standing quad set Standing Exercise Name TKE Side right Reps/Minutes 10 squat Standing Exercise Name mini squat with band Resistance teal band Reps/Minutes 3X10 Comments verbal cues for hip hinge/ monitored for pain Manual Therapy Treatment Soft Tissue Mobilization scar Body Location R knee scar tissue, peripatellar area Mobilization Type Cross-Friction,Rolling Intensity/Depth sup t mod Body Position Hooklying Joint Mobilizations Patellofemoral Joint R Direction sup, med, inf, CW and CCW Neuro Re-Education Treatment Balance Activities SLS Details CGA with visual scanning, and head turns Surface on large blue cusioon Reps/Duration X5 right LE Marching on large blue cushion Details CGA hands above bars to use as needed Surface Blue cushion Reps/Duration X10 tandem stepping Details CGA hands above bars to use as needed Reps/Duration 10 feet X 6 Comments with head turns and visual scanning and counting back by 2's PT-OP-T Assessment and Plan Start: 01/01/24 18:29 Freq: Status: Active Protocol: Document 03/03/24 11:16 AB (Rec: 03/03/24 12:51 AB [id number]) Physical Therapy Assessment Goals Four Impairment walking w/FWW Short Term Goal (STG) Pt will be able to walk w/o AD around the house and start short walks of 5 min STG Duration achieved 02/09 [facility] Goal (LTG) Pt will be able to return to walking at least 1 mile on small hills w/o inc pain greater than 1/10 LTG Duration 04/05 Two Impairment ROM Short Term Goal (STG) Pt will improve R knee AROM to at least 5-95 deg STG Duration achieved Street Light Inspector Goal (LTG) Pt will improve R knee AROM to at least 0-120 deg to allow for greater ease w/activities like stairs 02/09-4-109 LTG Duration 04/05/24 One Impairment LEFS 13/80 Short Term Goal (STG) Pt will improve LEFS score to at least 38/80 to show improved functional ability. STG Duration achieved to 41/80 Street Light Inspector Goal (LTG) Pt will improve LEFS score to at least 60/80 to show improved functional ability. LTG Duration 04/05/24 Assessment Summary Assessment HEP progressed and condensed this session. Patient performed squats with band with good form reporting no increased pain. Physical Therapy Plan Frequency and Duration Frequency of Treatment 2x/Week Duration of treatment (weeks) 12 Plan of Care Start Date 01/12/24 Plan of Care End Date 04/05/24 Next Visit Focus/Plan Next Note Type Treatment Note Next Visit Plan cont to advance squats, stairs , and quad strength, balance next session, progress step up as padmini.
--- NOTE | 2024-03-09 12:08 | PT.OTN ---
Current Diagnoses Unilateral primary osteoarthritis, right knee (03/09/24) Difficulty in walking, not elsewhere classified (03/09/24) Weakness (03/09/24) Physical Therapy Treatment Note PT-OP-A Visit Information Start: 01/01/24 18:29 Freq: Status: Active Protocol: Document 03/09/24 08:09 AB (Rec: 03/09/24 09:03 AB [id number]) Out-Patient Physical Therapy Visit Information Visit Information Visit Type Treatment Note Visit Note 06/05 for PN Access Code: [email or web address] Visit Start Time 08:17 Visit Stop Time 09:00 Visit Number 16 Number of LEAD APPLICATIONS DEVELOPER Visits 3 PT-OP-B Current Condition Start: 01/01/24 18:29 Freq: Status: Active Protocol: Document 01/12/24 12:59 [facility] (Rec: 01/12/24 14:59 [facility] [id number]) Current Condition History of Current Condition Onset Date 01/04 Current Complaints R TKA History of Current Condition Pt reports she had a bad knee for 15 years and it got to a point where about Aug, she knew it was time. She couldn't even make it around the grocery store at that time. SHe wants to cont to walk aroudn and travel and do stuff . She lives with her who has been a good helper. Pt has a SLH but has 18 stairs w /rail to get in and knows step to pattern. has a walk in shower and is using a BSC and a raised toilet seat. She has a FWW and cane. Has been indep w/dressing and bathing except helps with socks. DOes have osteoporosis and has started infusion treatments for that. Does also have L knee pain and Treatment Goals Patient/Caregiver Goals be able to travel, at 6 months wants to go to [place], be able to go for walks, be able to walk faster PT-OP-C Subjective Start: 01/01/24 18:29 Freq: Status: Active Protocol: Document 03/09/24 08:09 AB (Rec: 03/09/24 09:03 AB [id number]) OP-PT Subjective Patient Comments Patient Comments Patient reports she thinks the knee is the same, has been backsliding on HEP for the knee due to focusing on the back. AROM lacking 3 deg extension 127 deg flexion right knee start of session. SLS 15 seconds when visual scanning initiated at 15 seconds immediate LOB. PT-OP-F Manual Assessment Start: 01/01/24 18:29 Freq: Status: Active Protocol: Document 01/12/24 12:59 [facility] (Rec: 01/12/24 14:59 [facility] [id number]) Manual Assessments Other Manual Assessments Other Manual Assessments signficiant bruising throughout lower leg and thigh w/intact dressing w/o excessive drainage PT-OP-G Mobility & Gait Start: 01/01/24 18:29 Freq: Status: Active Protocol: Document 01/12/24 12:59 [facility] (Rec: 01/12/24 14:59 [facility] [id number]) OP Gait Assessment Comments Gait Comments dec RLE stance time, wt shifted towards left; amb wFWW w/smaller strides PT-OP-K Range of Motion Start: 01/01/24 18:29 Freq: Status: Active Protocol: Document 02/10/24 15:22 [facility] (Rec: 02/10/24 16:07 [facility] [id number]) Knee Goniometric Range of Motion Knee Right Flexion Active (degrees) 109 Extension Active (degrees) 4 PT-OP-M Strength Start: 01/01/24 18:29 Freq: Status: Active Protocol: Document 02/10/24 15:22 [facility] (Rec: 02/10/24 16:07 [facility] [id number]) Hip Strength Hip Manual Muscle Testing Right Flexion (L2) 4 Good Abduction 4+ Good+ External Rotation 4 Good Internal Rotation 5 Normal Left Flexion (L2) 4- Good- Abduction 4+ Good+ External Rotation 4 Good Internal Rotation 5 Normal Comments pain in back w/hip flex Knee Strength Knee Manual Muscle Testing Right Flexion (S2) 4 Good Extension (L3) 4 Good Left Flexion (S2) 5 Normal Extension (L3) 5 Normal Ankle/Foot Strength Ankle and Foot Manual Muscle Testing Right Dorsiflexion (L4) 4+ Good+ Plantarflexion (S1) 4 Good Comments 10 heel raises Left Dorsiflexion (L4) 5 Normal Plantarflexion (S1) 5 Normal Comments 20 heel raises PT-OP-Q Treatments Start: 01/01/24 18:29 Freq: Status: Active Protocol: Document 03/09/24 08:09 AB (Rec: 03/09/24 09:03 AB [id number]) Therapeutic Exercises Supine Exercises hamstring stretch Supine Exercise Name from hooklying Side right Reps/Minutes 60 seconds X 3 Sitting Exercises seated hip abduction with band Side bilateral Resistance level 3 green band Reps/Minutes one minute hold X 1 and X 10 without hold LAQ Side right Reps/Minutes X15 X3 second and 3rd set with level one band Standing Exercises step up step back Standing Exercise Name fwd step up step back, with UE use Side right Equipment Used 6 inch and 4 inch Reps/Minutes X2 and X 10 X 2 Comments reports popping with 6 inch step squat Standing Exercise Name mini squat with band Resistance level 3 green band Reps/Minutes X10 Manual Therapy Treatment Soft Tissue Mobilization right knee Body Location HS, lateral and medial right knee Mobilization Type Cross-Friction,Rolling Intensity/Depth Moderate Body Position Hooklying Neuro Re-Education Treatment Balance Activities SLS Details CGA with visual scanning, and head turns Surface on large blue cusioon Reps/Duration X5 right LE Marching on large blue cushion Details CGA hands above bars to use as needed Surface Blue cushion Reps/Duration X10 tandem stepping Details CGA hands above bars to use as needed Reps/Duration 10 feet X 6 Comments with head turns and visual scanning and counting back by 2's hurdles Details CGA hands above bars to use as needed Reps/Duration 4 hurdles X6 Comments difficulty clearing evita X 2 PT-OP-T Assessment and Plan Start: 01/01/24 18:29 Freq: Status: Active Protocol: Document 03/09/24 08:09 AB (Rec: 03/09/24 09:03 AB [id number]) Physical Therapy Assessment Goals Four Impairment walking w/FWW Short Term Goal (STG) Pt will be able to walk w/o AD around the house and start short walks of 5 min STG Duration achieved 02/09 [facility] Goal (LTG) Pt will be able to return to walking at least 1 mile on small hills w/o inc pain greater than 1/10 LTG Duration 04/05 Two Impairment ROM Short Term Goal (STG) Pt will improve R knee AROM to at least 5-95 deg STG Duration achieved [facility]sp Goal (LTG) Pt will improve R knee AROM to at least 0-120 deg to allow for greater ease w/activities like stairs 02/09- LTG Duration 04/05/24 One Impairment LEFS 13/80 Short Term Goal (STG) Pt will improve LEFS score to at least 38/80 to show improved functional ability. STG Duration achieved to 41/80 Aerodynamicist Goal (LTG) Pt will improve LEFS score to at least 60/80 to show improved functional ability. LTG Duration 04/05/24 Assessment Summary Assessment AROM right knee 0 deg extension post manual therapy and exercise. Step up regressed to 4 inch step this session due to reports of clicking ( painless ) when initiated on 6 inch step. Physical Therapy Plan Frequency and Duration Frequency of Treatment 2x/Week Duration of treatment (weeks) 12 Plan of Care Start Date 01/12/24 Plan of Care End Date 04/05/24 Next Visit Focus/Plan Next Note Type Treatment Note Next Visit Plan cont to advance squats, stairs , and quad strength, balance next session, progress step up as padmini.
--- NOTE | 2024-03-23 16:30 | PT.OTN ---
Current Diagnoses Unilateral primary osteoarthritis, right knee (03/23/24) Difficulty in walking, not elsewhere classified (03/23/24) Weakness (03/23/24) Physical Therapy Treatment Note PT-OP-A Visit Information Start: 01/01/24 18:29 Freq: Status: Active Protocol: Document 03/23/24 08:06 AB (Rec: 03/23/24 09:50 AB [id number]) Out-Patient Physical Therapy Visit Information Visit Information Visit Type Treatment Note Visit Note 07/06 for PN Access Code: [email or web address] Visit Start Time 08:16 Visit Stop Time 09:00 Visit Number 17 Number of MANAGER DATABASE ADMINISTRATION Visits 4 PT-OP-B Current Condition Start: 01/01/24 18:29 Freq: Status: Active Protocol: Document 01/12/24 12:59 [facility] (Rec: 01/12/24 14:59 [facility] [id number]) Current Condition History of Current Condition Onset Date 01/04 Current Complaints R TKA History of Current Condition Pt reports she had a bad knee for 15 years and it got to a point where about Aug, she knew it was time. She couldn't even make it around the grocery store at that time. SHe wants to cont to walk aroudn and travel and do stuff . She lives with her who has been a good helper. Pt has a SLH but has 18 stairs w /rail to get in and knows step to pattern. has a walk in shower and is using a BSC and a raised toilet seat. She has a FWW and cane. Has been indep w/dressing and bathing except helps with socks. DOes have osteoporosis and has started infusion treatments for that. Does also have L knee pain and Treatment Goals Patient/Caregiver Goals be able to travel, at 6 months wants to go to [place], be able to go for walks, be able to walk faster PT-OP-C Subjective Start: 01/01/24 18:29 Freq: Status: Active Protocol: Document 03/23/24 08:06 AB (Rec: 03/23/24 09:50 AB [id number]) OP-PT Subjective Patient Comments Patient Comments Patient reports the knee is better, has a little less pain . Patient reports she cannot walk very long, maybe 1/3 of a mile. AROM right knee 0 to 123 deg start of session. Patient reports the knee was clicking with some pain ambulating into session without device right LE. Right LE knee to wall with great toe 3 cm from wall PROM body over ankle movement DF. PT-OP-F Manual Assessment Start: 01/01/24 18:29 Freq: Status: Active Protocol: Document 01/12/24 12:59 [facility] (Rec: 01/12/24 14:59 [facility] [id number]) Manual Assessments Other Manual Assessments Other Manual Assessments signficiant bruising throughout lower leg and thigh w/intact dressing w/o excessive drainage PT-OP-G Mobility & Gait Start: 01/01/24 18:29 Freq: Status: Active Protocol: Document 01/12/24 12:59 [facility] (Rec: 01/12/24 14:59 [facility] [id number]) OP Gait Assessment Comments Gait Comments dec RLE stance time, wt shifted towards left; amb wFWW w/smaller strides PT-OP-K Range of Motion Start: 01/01/24 18:29 Freq: Status: Active Protocol: Document 02/10/24 15:22 [facility] (Rec: 02/10/24 16:07 [facility] [id number]) Knee Goniometric Range of Motion Knee Right Flexion Active (degrees) 109 Extension Active (degrees) 4 PT-OP-M Strength Start: 01/01/24 18:29 Freq: Status: Active Protocol: Document 02/10/24 15:22 [facility] (Rec: 02/10/24 16:07 [facility] [id number]) Hip Strength Hip Manual Muscle Testing Right Flexion (L2) 4 Good Abduction 4+ Good+ External Rotation 4 Good Internal Rotation 5 Normal Left Flexion (L2) 4- Good- Abduction 4+ Good+ External Rotation 4 Good Internal Rotation 5 Normal Comments pain in back w/hip flex Knee Strength Knee Manual Muscle Testing Right Flexion (S2) 4 Good Extension (L3) 4 Good Left Flexion (S2) 5 Normal Extension (L3) 5 Normal Ankle/Foot Strength Ankle and Foot Manual Muscle Testing Right Dorsiflexion (L4) 4+ Good+ Plantarflexion (S1) 4 Good Comments 10 heel raises Left Dorsiflexion (L4) 5 Normal Plantarflexion (S1) 5 Normal Comments 20 heel raises PT-OP-Q Treatments Start: 01/01/24 18:29 Freq: Status: Active Protocol: Document 03/23/24 08:06 (Rec: 03/23/24 09:50 [id number]) Therapeutic Exercises Supine Exercises knee flexion with feet on ball Side bilateral Reps/Minutes 2 minutes Sitting Exercises seated hip abduction with band Side bilateral Resistance level 4 blue band Reps/Minutes one minute hold X 2 and X 10 X2 without hold Standing Exercises step up step back Standing Exercise Name fwd step up step back, with UE use Side right Equipment Used 6 inch and 4 inch Reps/Minutes X4 each Comments reports popping with 6 inch step calf stretch on stair Standing Exercise Name at wall gastroc and soleus Side right Reps/Minutes 60 sec X 1 each LE squat Standing Exercise Name mini squat with band Resistance level 4 band Reps/Minutes X10 Manual Therapy Treatment Soft Tissue Mobilization scar Body Location R knee scar tissue, peripatellar area Mobilization Type Cross-Friction,Rolling Intensity/Depth sup t mod Body Position Hooklying Joint Mobilizations Patellofemoral Joint R Direction sup, med, inf, CW and CCW Neuro Re-Education Treatment Balance Activities Marching on large blue cushion Details CGA hands above bars to use as needed Surface Blue cushion Reps/Duration X10 step up taps Details CGA hands above bars to use as needed Equipment 4 inch step Reps/Duration X10 tandem stepping Details CGA hands above bars to use as needed Reps/Duration 10 feet X 6 Comments with head turns and visual scanning and counting back by 2's PT-OP-T Assessment and Plan Start: 01/01/24 18:29 Freq: Status: Active Protocol: Document 03/23/24 08:06 (Rec: 03/23/24 09:50 [id number]) Physical Therapy Assessment Goals Four Impairment walking w/FWW Short Term Goal (STG) Pt will be able to walk w/o AD around the house and start short walks of 5 min STG Duration achieved 02/09 Custodial Goal (LTG) Pt will be able to return to walking at least 1 mile on small hills w/o inc pain greater than 1/10 LTG Duration 6/10 Two Impairment ROM Short Term Goal (STG) Pt will improve R knee AROM to at least 5-95 deg STG Duration achieved Custodial Goal (LTG) Pt will improve R knee AROM to at least 0-120 deg to allow for greater ease w/activities like stairs 4/16-4-109 LTG Duration 04/05/24 One Impairment LEFS 13/80 Short Term Goal (STG) Pt will improve LEFS score to at least 38/80 to show improved functional ability. STG Duration achieved to 41/80 Custodial Goal (LTG) Pt will improve LEFS score to at least 60/80 to show improved functional ability. LTG Duration 04/05/24 Assessment Summary Assessment Patient reports having no pain end of session, pain with 6 inch step up persists. Clicking eliminated with verbal cues to avoid toeing out right LE during ambulation . Physical Therapy Plan Frequency and Duration Frequency of Treatment 2x/Week Duration of treatment (weeks) 12 Plan of Care Start Date 01/12/24 Plan of Care End Date 04/05/24 Next Visit Focus/Plan Next Note Type Progress Note Next Visit Plan Reassess tolerance to step up/ progress back to 6 inch as able, and c/o popping sensation right knee with ambulation.
--- NOTE | 2024-04-05 12:35 | PT.OTN ---
Current Diagnoses Unilateral primary osteoarthritis, right knee (04/05/24) Difficulty in walking, not elsewhere classified (04/05/24) Weakness (04/05/24) Physical Therapy Treatment Note PT-OP-A Visit Information Start: 01/01/24 18:29 Freq: Status: Active Protocol: Document 04/05/24 12:21 [facility] (Rec: 04/05/24 12:35 [facility] [id number]) Out-Patient Physical Therapy Visit Information Visit Information Visit Type Discharge Summary Visit Start Time 11:20 Visit Stop Time 12:03 Visit Number 18 Number of [employer] Visits 0 PT-OP-B Current Condition Start: 01/01/24 18:29 Freq: Status: Active Protocol: Document 01/12/24 12:59 [facility] (Rec: 01/12/24 14:59 [facility] [id number]) Current Condition History of Current Condition Onset Date 01/04 Current Complaints R TKA History of Current Condition Pt reports she had a bad knee for 15 years and it got to a point where about Nov, she knew it was time. She couldn't even make it around the grocery store at that time. SHe wants to cont to walk aron and travel and do stuff . She lives with her who has been a good helper. Pt has a SLH but has 18 stairs w /rail to get in and knows step to pattern. has a walk in shower and is using a BSC and a raised toilet seat. She has a FWW and cane. Has been indep w/dressing and bathing except helps with socks. DOes have osteoporosis and has started infusion treatments for that. Does also have L knee pain and Treatment Goals Patient/Caregiver Goals be able to travel, at 6 months wants to go to [place], be able to go for walks, be able to walk faster PT-OP-C Subjective Start: 01/01/24 18:29 Freq: Status: Active Protocol: Document 04/05/24 12:21 [facility] (Rec: 04/05/24 12:35 [facility] [id number]) OP-PT Subjective Patient Comments Patient Comments pt reports she has had a clicking in knee when it bends . Did walk 2 miles [place] this weekend and had pain the next day. overall pain is better Patient Questionnaires Lower Extremity Functional Scale LEFS Score 48 PT-OP-F Manual Assessment Start: 01/01/24 18:29 Freq: Status: Active Protocol: Document 01/12/24 12:59 [facility] (Rec: 01/12/24 14[id number] Manual Assessments Other Manual Assessments Other Manual Assessments signficiant bruising throughout lower leg and thigh w/intact dressing w/o excessive drainage PT-OP-G Mobility & Gait Start: 01/01/24 18:29 Freq: Status: Active Protocol: Document 01/12/24 12:59 [facility] (Rec: 01/12/24 14:[id number] OP Gait Assessment Comments Gait Comments dec RLE stance time, wt shifted towards left; amb wFWW w/smaller strides PT-OP-K Range of Motion Start: 01/01/24 18:29 Freq: Status: Active Protocol: Document 04/05/24 12:21 [facility] (Rec: 04/05/24 12:35 [facility] [id number]) Knee Goniometric Range of Motion Knee Right Flexion Active (degrees) 120 Extension Active (degrees) 2 Comments ext improved to 0 after manual PT-OP-M Strength Start: 01/01/24 18:29 Freq: Status: Active Protocol: Document 04/05/24 12:21 [facility] (Rec: 04/05/24 12:35 [facility] [id number]) Hip Strength Hip Manual Muscle Testing Right Flexion (L2) 4+ Good+ Abduction 5 Normal External Rotation 5 Normal Internal Rotation 5 Normal Left Flexion (L2) 4 Good Abduction 5 Normal External Rotation 4 Good Internal Rotation 5 Normal Knee Strength Knee Manual Muscle Testing Right Flexion (S2) 5 Normal Extension (L3) 5 Normal Left Flexion (S2) 5 Normal Extension (L3) 5 Normal Ankle/Foot Strength Ankle and Foot Manual Muscle Testing Right Dorsiflexion (L4) 5 Normal Plantarflexion (S1) 4+ Good+ Comments 15 heel raises Left Dorsiflexion (L4) 5 Normal Plantarflexion (S1) 5 Normal Comments 20 heel raises PT-OP-Q Treatments Start: 01/01/24 18:29 Freq: Status: Active Protocol: Document 04/05/24 12:21 [facility] (Rec: 04/05/24 12:35 [facility] [id number]) Therapeutic Exercises Supine Exercises PROM Supine Exercise Name AROM knee flex/ext Sitting Exercises self roll out Sitting Exercise Name rolling pin to ITB, quad & calf Side right Standing Exercises quad stretch Side right Reps/Minutes 30sec Comments chair w/rail heel raises Standing Exercise Name SL Side bilateral Reps/Minutes 15 R; 20 L step up step back Standing Exercise Name 1. fwd step up/back down 2. lat up/down 3. back step up/ fwd down Side right Equipment Used 6 in Reps/Minutes 4 ea Comments cues slower calf stretch on stair Standing Exercise Name step Side bilateral Reps/Minutes 1 min squat Standing Exercise Name cues for deeper Reps/Minutes 10 Other Exercises isometrics Other Exercise Name LE MMT Side bilateral Manual Therapy Treatment Soft Tissue Mobilization scar Body Location R knee scar tissue, peripatellar area Mobilization Type Cross-Friction,Rolling Intensity/Depth sup t mod Body Position Hooklying right knee Comments R knee plunger & ITB plunger w /flex, patellar tendon, lat quad, ITB rolling Joint Mobilizations hip Joint R IR hip on axis FM supine tibfem Comments AP tib w/IR FM Patellofemoral Joint R Direction sup, med, inf, CW and CCW PT-OP-T Assessment and Plan Start: 01/01/24 18:29 Freq: Status: Active Protocol: Document 04/05/24 12:21 [facility] (Rec: 04/05/24 12:35 [facility] [id number]) Physical Therapy Assessment Goals Four Impairment walking w/FWW Short Term Goal (STG) Pt will be able to walk w/o AD around the house and start short walks of 5 min STG Duration achieved 02/09 Care Home Goal (LTG) Pt will be able to return to walking at least 1 mile on small hills w/o inc pain greater than 1/10 04/05-been walking 1/3 mile mostly but did walk 2 miles when [place] and had inc pain through the next day LTG Duration 04/05 Two Impairment ROM Short Term Goal (STG) Pt will improve R knee AROM to at least 5-95 deg STG Duration achieved Care Home Goal (LTG) Pt will improve R knee AROM to at least 0-120 deg to allow for greater ease w/activities like stairs 02/09-4-109 LTG Duration achieved after manual 04/05 One Impairment LEFS 13/80 Short Term Goal (STG) Pt will improve LEFS score to at least 38/80 to show improved functional ability. STG Duration achieved to 41/80 [place] Examiner Goal (LTG) Pt will improve LEFS score to at least 60/80 to show improved functional ability. 04/05- LTG Duration 04/05/24 Assessment Summary Assessment Improved gait mechanics w/less toe out after manual. Pt has significant swelling of R knee still and encouraged to ice and elevate to help w/this as this may be related to clicking.S he has improved significantly w/functional ability, ROM and strength and feels comfortable working on HEP at this time on her own.Pt encouraged to follow up w/MD if clicking and pain in knee persists. DC to HEP at this time Physical Therapy Plan Discharge Physical Therapy Discharge Comments goals mostly met and pt feels ready to cont HEP on her own.
== END 2024-04-08 10:05 | disposition home or self-care (01) ==
LOC: PHYS 11:15
PROVIDERS: Family Provider Student in an Organized Health Care Education/Training Program; PCP Family Medicine; Referring Provider Physician Assistant; Visit Provider Physician Assistant
DX: M17.11 Unilateral primary osteoarthritis, right knee (principal); R53.1 Weakness; R26.2 Difficulty in walking, not elsewhere classified
CPT/HCPCS: 97110; 97112; 97116; 97140; 97162; 97530; 97535

== ENCOUNTER → 2025-06-01 09:36 | Outpatient (CLI) | payer MEDICARE, OTHER, SELFPAY ==
--- NOTE | 2025-06-01 09:37 | DI.RAD.S_ITS ---
PROCEDURE: XR DEXA AXIAL SKELETON INDICATIONS: OSTEOPENIA COMPARISON: [facility], CR, XR DEXA AXIAL SKELETON, 07/04/2023, 10:58. FINDINGS: Lumbar Spine: Bone mineral density 0.828 (previously 0.780) g/cm2, T score -1.9 (previously-2.4). Left Femoral Neck: Bone mineral density 0.582 (previously 0.590) g/cm2, T score -2.4 (previously-2.3). Left Hip: Bone mineral density 0.755 (previously 0.752) g/cm2, T score -1.5 (previously-1.6). Fracture Risk Calculation (when applicable): 10-year fracture risk of a major osteoporotic fracture 13 percent and of a hip fracture 3.3 percent. IMPRESSION: Osteopenia Follow-up guidelines as follows: Osteoporosis: Consider a repeat DEXA and Vertebral Fracture Assessment (VFA) exam in 2 years or sooner if medically necessary, to reassess this patient's status. Osteopenia: Consider a repeat DEXA in 2-3 years to reassess this patient's status, or if there is a new clinical indication. Normal: Consider a repeat DEXA in 5 years or sooner, or if there is a new clinical indication. All treatment decisions require clinical judgment and consideration of individual patient factors, including patient preferences, comorbidities, previous drug use, risk factors not captured in the FRAX model (e.g., frailty, falls, vitamin D deficiency, increased bone turnover, interval significant decline in bone density ) and possible under- or over-estimation of fracture risk by FRAX. In addition, the NOF Guide recommends that FDA-approved medical therapies be considered in postmenopausal women and men age >= 50 years with a: * Hip or vertebral (clinical or morphometric) fracture * T-score of <=-2.5 at the spine or hip * Ten-year fracture probability by FRAX of >= 3% for hip fracture or >=20% for major osteoporotic fracture. Dictated by: Mahendra Mix M.D. on 06/02/2025 at 8:22 Approved by: Mahendra Mix M.D. on 06/02/2025 at 8:41
== END ==
PROVIDERS: Family Provider Student in an Organized Health Care Education/Training Program; PCP Family Medicine; Referring Provider Family Medicine; Visit Provider Family Medicine
DX: M85.89 Other specified disorders of bone density and structure, multiple sites (principal)
CPT/HCPCS: 77080